=== PATIENT | female | born 1985 | race American Indian/Alaskan Native ===

== ENCOUNTER 2021-04-24 01:38 | Inpatient (IN) | payer SELFPAY ==
[2021-04-24] MEDS ORDERED: SODIUM CHLORIDE 0.9% 1000 ML 1,000 ML IV ONE ×2 (01:48→02:57)
--- NOTE | 2021-04-24 01:52 | Emergency Department Report ---
HPI - General Time Seen by Provider: 04/24/21 01:44 - [facility] HPI: This is a 35-year-old -[place] female presents to the emergency department via EMS from home with a complaint of altered mental status, weakness, dehydration and hyperglycemia. Apparently a family member called EMS as the patient appeared to be going in and out of consciousness. The patient is awake and alert for EMS and myself. She admits to being out of her insulin for the past week. She denies any headache, vision change, chest pain, shortness of breath, abdominal pain, vomiting. She also has a history of hypertension and was found to have an extremely elevated blood pressure with EMS and upon presentation here. The patient does not know which blood pressure medications she takes and also does not appear to be compliant with this. She admits to being in diabetic ketoacidosis in the past. The Accu-Chek in route with EMS just read "high." ED Review of Systems ROS: Stated complaint: HYPERGLYCIMA/HTN Other details as noted in HPI Comment: All other systems reviewed and negative Constitutional: weakness. denies: chills, fever Eyes: denies: eye pain, vision change ENT: denies: ear pain, throat pain Respiratory: denies: cough, shortness of breath Cardiovascular: denies: chest pain, palpitations Endocrine: increased thirst, increased urine Gastrointestinal: nausea. denies: abdominal pain, vomiting Genitourinary: frequency. denies: dysuria, discharge Musculoskeletal: denies: back pain, arthralgia Skin: denies: rash, lesions Neurological: denies: headache, numbness Physical Exam - Physical Exam Physical Exam: GENERAL: The patient is ill-appearing. HENT: Normocephalic. Atraumatic. Patient has moist mucous membranes. EYES: Extraocular motions are intact. NECK: Supple. Trachea is midline. CHEST/LUNGS: Clear to auscultation. There is no respiratory distress noted. HEART/CARDIOVASCULAR: Regular. There is mild tachycardia. There is no murmur. ABDOMEN: Abdomen is soft, nontender. Patient has normal bowel sounds. There is no abdominal distention. SKIN: Skin is warm and dry. NEURO: The patient is awake, alert, and cooperative. The patient has no focal neurologic deficits. Normal speech. MUSCULOSKELETAL: There is no tenderness or deformity. There is no limitation range of motion. ED Medical Decision Making - Lab Data Result diagrams: 04/24/21 01:58 04/24/21 01:58 Lab Results 04/24/21 04/24/21 04/24/21 Range/Units 01:42 01:58 01:58 WBC 13.2 H (4.5-11.0) K/mm3 RBC 5.01 (3.65-5.03) M/mm3 Hgb 16.7 H (10.1-14.3) gm/dl Hct 50.3 H (30.3-42.9) % MCV 101 H (79-97) fl MCH 33 H (28-32) pg MCHC 33 (30-34) % RDW 12.7 L (13.2-15.2) % Plt Count 378 (140-440) K/mm3 Add Manual Diff Complete Total Counted 100 Seg Neutrophils % Target Man Seg Neuts % (Manual) 95.0 H (40.0-70.0) % Lymphocytes % (Manual) 4.0 L (13.4-35.0) % Monocytes % (Manual) 1.0 (0.0-7.3) % Nucleated RBC % Not Reportable Seg Neutrophils # Man 12.5 H (1.8-7.7) K/mm3 Band Neutrophils # 0.0 K/mm3 Lymphocytes # (Manual) 0.5 L (1.2-5.4) K/mm3 Abs React Lymphs (Man) 0.0 K/mm3 Monocytes # (Manual) 0.1 (0.0-0.8) K/mm3 Eosinophils # (Manual) 0.0 (0.0-0.4) K/mm3 Basophils # (Manual) 0.0 (0.0-0.1) K/mm3 Metamyelocytes # 0.0 K/mm3 Myelocytes # 0.0 K/mm3 Promyelocytes # 0.0 K/mm3 Blast Cells # 0.0 K/mm3 WBC Morphology Not Reportable Hypersegmented Neuts Not Reportable Hyposegmented Neuts Not Reportable Hypogranular Neuts Not Reportable Smudge Cells Not Reportable Toxic Granulation Not Reportable Toxic Vacuolation Not Reportable Dohle Bodies Not Reportable Pelger-Huet Anomaly Not Reportable Lucero Rods Not Reportable Platelet Estimate Consistent w auto Clumped Platelets Not Reportable Plt Clumps, EDTA Not Reportable Large Platelets Not Reportable Giant Platelets Not Reportable Platelet Satelliting Not Reportable Plt Morphology Comment Not Reportable RBC Morphology Normal Dimorphic RBCs Not Reportable Polychromasia Not Reportable Hypochromasia Not Reportable Poikilocytosis Not Reportable Anisocytosis Not Reportable Microcytosis Not Reportable Macrocytosis Not Reportable Spherocytes Not Reportable Pappenheimer Bodies Not Reportable Sickle Cells Not Reportable Target Cells Not Reportable Tear Drop Cells Not Reportable Ovalocytes Not Reportable Helmet Cells Not Reportable [place] Bodies Not Reportable [place] Rings Not Reportable [place] Cells Not Reportable Bite Cells Not Reportable Crenated Cell Not Reportable Elliptocytes Not Reportable Acanthocytes (Spur) Not Reportable Rouleaux Not Reportable Hemoglobin C Crystals Not Reportable Schistocytes Not Reportable Malaria parasites Not Reportable [place] Bodies Not Reportable Hem Pathologist Commnt No VBG pH (7.320-7.420) Sodium 137 (137-145) mmol/L Potassium 4.6 (3.6-5.0) mmol/L Chloride 92.1 L (98-107) mmol/L Carbon Dioxide 18 L (22-30) mmol/L Anion Gap 32 mmol/L BUN 25 H (7-17) mg/dL Creatinine 2.0 H (0.6-1.2) mg/dL Estimated GFR 28 ml/min BUN/Creatinine Ratio 13 % Glucose 864 H* (65-100) mg/dL POC Glucose > 600 H (70-105) mg/dL Ketones Quantitative Small (Negative) Osmolality Mosm/kg Calcium 10.4 H (8.4-10.2) mg/dL Total Bilirubin 0.30 (0.1-1.2) mg/dL Direct Bilirubin < 0.2 (0-0.2) mg/dL Indirect Bilirubin 0.1 mg/dL AST 18 (5-40) units/L ALT 11 (7-56) units/L Alkaline Phosphatase 157 H (35-129) units/L Total Protein 7.6 (6.3-8.2) g/dL Albumin 4.2 (3.9-5) g/dL Albumin/Globulin Ratio 1.2 % HCG, Qual (Negative) 04/24/21 04/24/21 04/24/21 Range/Units 01:58 01:58 03:18 WBC (4.5-11.0) K/mm3 RBC (3.65-5.03) M/mm3 Hgb (10.1-14.3) gm/dl Hct (30.3-42.9) % MCV (79-97) fl MCH (28-32) pg MCHC (30-34) % RDW (13.2-15.2) % Plt Count (140-440) K/mm3 Add Manual Diff Total Counted Seg Neutrophils % Seg Neuts % (Manual) (40.0-70.0) % Lymphocytes % (Manual) (13.4-35.0) % Monocytes % (Manual) (0.0-7.3) % Nucleated RBC % Seg Neutrophils # Man (1.8-7.7) K/mm3 Band Neutrophils # K/mm3 Lymphocytes # (Manual) (1.2-5.4) K/mm3 Abs React Lymphs (Man) K/mm3 Monocytes # (Manual) (0.0-0.8) K/mm3 Eosinophils # (Manual) (0.0-0.4) K/mm3 Basophils # (Manual) (0.0-0.1) K/mm3 Metamyelocytes # K/mm3 Myelocytes # K/mm3 Promyelocytes # K/mm3 Blast Cells # K/mm3 WBC Morphology Hypersegmented Neuts Hyposegmented Neuts Hypogranular Neuts Smudge Cells Toxic Granulation Toxic Vacuolation Dohle Bodies Pelger-Huet Anomaly Lucero Rods Platelet Estimate Clumped Platelets Plt Clumps, EDTA Large Platelets Giant Platelets Platelet Satelliting Plt Morphology Comment RBC Morphology Dimorphic RBCs Polychromasia Hypochromasia Poikilocytosis Anisocytosis Microcytosis Macrocytosis Spherocytes Pappenheimer Bodies Sickle Cells Target Cells Tear Drop Cells Ovalocytes Helmet Cells Sykes-[place] Bodies [place] Rings [place] Cells Bite Cells Crenated Cell Elliptocytes Acanthocytes (Spur) Rouleaux Hemoglobin C Crystals Schistocytes Malaria parasites [place] Bodies Hem Pathologist Commnt VBG pH 7.329 (7.320-7.420) Sodium (137-145) mmol/L Potassium (3.6-5.0) mmol/L Chloride (98-107) mmol/L Carbon Dioxide (22-30) mmol/L Anion Gap mmol/L BUN (7-17) mg/dL Creatinine (0.6-1.2) mg/dL Estimated GFR ml/min BUN/Creatinine Ratio % Glucose (65-100) mg/dL POC Glucose (70-105) mg/dL Ketones Quantitative (Negative) Osmolality 343 Mosm/kg Calcium (8.4-10.2) mg/dL Total Bilirubin (0.1-1.2) mg/dL Direct Bilirubin (0-0.2) mg/dL Indirect Bilirubin mg/dL AST (5-40) units/L ALT (7-56) units/L Alkaline Phosphatase (35-129) units/L Total Protein (6.3-8.2) g/dL Albumin (3.9-5) g/dL Albumin/Globulin Ratio % HCG, Qual Negative (Negative) - EKG Data -: EKG Interpreted by Me EKG shows normal: sinus rhythm, axis, intervals, QRS complexes (Beltran H), ST-T waves Rate: normal - EKG Data When compared to previous EKG there are: previous EKG unavailable Interpretation: LVH - Medical Decision Making This patient presents to the emergency department with some generalized weakness and fatigue, increased urination, increased thirst, and hyperglycemia secondary to medication noncompliance with her insulin. She had an Accu-Chek that was critically high with EMS. The patient does appear to be in diabetic ketoacidosis as she has a serum blood sugar of about 860, and anion gap of 32, is starting to have some venous acidosis, and is producing serum ketones. The patient has been placed on an insulin drip and will go to the ICU. She has been accepted for admission by the hospitalist, Dr. Rahman. Critical Care Time: Yes Critical care time in (mins) excluding proc time.: 35 Critical care attestation.: If time is entered above; I have spent that time in minutes in the direct care of this critically ill patient, excluding procedure time. Critical care time was spent on this patient in doing her initial evaluation, multiple reevaluations, ordering and interpretation of labs, IV fluid resuscitation and insulin drip for diabetic ketoacidosis, multiple discussions with the patient. Critical Care Time: 35 minutes ED Disposition Clinical Impression: Hypertensive urgency, malignant Diabetic ketoacidosis Qualifiers: Diabetes mellitus type: type 1 Diabetes mellitus complication detail: without coma Qualified Code(s): E10.10 - Type 1 diabetes mellitus with ketoacidosis without coma Acute renal failure Qualifiers: Acute renal failure type: unspecified Qualified Code(s): N17.9 - Acute kidney failure, unspecified Disposition: 09 ADMITTED INPATIENT Is pt being admited?: Yes Condition: Serious Time of Disposition: 03:17
[2021-04-24 02:19] LABS: Hematocrit 50.3 % (30.3-42.9); Hemoglobin 16.7 gm/dl (10.1-14.3); Mean Corpuscular HGB Conc 33 % (30-34); Mean Corpuscular Volume 101 fl (79-97); Platelet Count 378 K/mm3 (140-440); Red Blood Count 5.01 M/mm3 (3.65-5.03); Red Cell Distribution Width 12.7 % (13.2-15.2)
[2021-04-24] MEDS ORDERED: hydrALAZINE 20 MG/1 ML INJ IV ONE (02:24)
[2021-04-24 02:33] LABS: Alanine Aminotransferase 11 units/L (7-56); Albumin 4.2 g/dL (3.9-5); BUN/Creatinine Ratio 13; Blood Urea Nitrogen 25 mg/dL (7-17); Calcium 10.4 mg/dL (8.4-10.2); Hemolysis Index 9
[2021-04-24 02:47] LABS: Bilirubin,Direct < 0.2 mg/dL (0-0.2)
[2021-04-24 02:54] LABS: Platelet Estimate Consistent w Auto; RBC Morphology Normal; Total Cells Counted 100
[2021-04-24] MEDS ORDERED: INSULIN REGULAR, HUMAN 100 UNITS in SODIUM CHLORIDE 0.9% 99 ML IV SCH (03:00)
[2021-04-24] MEDS ORDERED: ALBUTEROL 2.5 MG/3 ML NEBU IH PRN (03:32)
[2021-04-24] MEDS ORDERED: MORPHINE 2 MG/1 ML INJ IV PRN (03:32)
[2021-04-24] MEDS ORDERED: HYDROmorphone 1 MG/1 ML INJ IV PRN (03:32)
[2021-04-24] MEDS ORDERED: ONDANSETRON 4 MG/2 ML INJ IV PRN (03:32)
--- NOTE | 2021-04-24 03:40 | History and Physical Report ---
History of Present Illness Date of examination: 04/24/21 Date of admission: 04/24/21 Chief complaint: Hyperglycemia Hypertension History of present illness: 35-year female with past medical history of diabetes type 1 and hypertension was brought to the emergency room because of altered mental status, weakness, dehydration and hyperglycemia. Apparently a family member called EMS as the patient appeared to be going in and out of consciousness. The patient is awake and alert for EMS and myself. She admits to being out of her insulin for the past week. She denies any headache, vision change, chest pain, shortness of breath, abdominal pain, vomiting. She also has a history of hypertension and was found to have an extremely elevated blood pressure with EMS and upon presentation here. BP was 240/165. Patient also complained of polydipsia and polyuria. In the emergency room patient is found to have DKA. Patient blood glucose 864. Bicarb 18 anion gap 32 BUN 25 and creatinine 2.0. We are going to put the patient on ICU with insulin drip will consult critical care evaluation Past History Past Medical History: diabetes, hypertension Medications and Allergies Allergies Allergy/AdvReac Type Severity Reaction Status Date / Time No Known Allergies Allergy Verified 04/24/21 02:01 Active Meds: Active Medications Acetaminophen (Acetaminophen 325 Mg Tab) 650 mg PO Q4H PRN PRN Reason: Pain MILD(1-3)/Fever >100.5/TOVAR Albuterol (Albuterol 2.5 Mg/3 Ml Nebu) 2.5 mg IH Q4HRT PRN PRN Reason: Shortness Of Breath Albuterol/Ipratropium (Ipratropium/Albuterol Sulfate 3 Ml Ampul.Neb) 1 ampul IH Q6HRT LAKSHMI Famotidine (Famotidine 20 Mg/2 Ml Inj) 20 mg IV BID LAKSHMI Heparin Sodium (Porcine) (Heparin 5,000 Unit/1 Ml Vial) 5,000 unit SUB-Q Q8HR LAKSHMI Hydromorphone HCl (Hydromorphone 1 Mg/1 Ml Inj) 0.5 mg IV Q3H PRN PRN Reason: Pain , Severe (7-10) Insulin Human Regular 100 (units/ Sodium Chloride) 100 mls @ 1 mls/hr IV TITR LAKSHMI; Protocol Sodium Chloride (Nacl 0.9% 1000 Ml) 1,000 mls @ 999 mls/hr IV BOLUS ONE Stop: 04/24/21 03:57 Insulin Human Regular 100 (units/ Sodium Chloride) 100 mls @ 1 mls/hr IV TITR LAKSHMI; Protocol Sodium Chloride (Nacl 0.9% 1000 Ml) 1,000 mls @ 125 mls/hr IV DIRECT LAKSHMI Morphine Sulfate (Morphine 2 Mg/1 Ml Inj) 2 mg IV Q4H PRN PRN Reason: Pain, Moderate (4-6) Ondansetron HCl (Ondansetron 4 Mg/2 Ml Inj) 4 mg IV Q8H PRN PRN Reason: Nausea And Vomiting Sodium Chloride (Sodium Chloride 0.9% 10 Ml Flush Syringe) 10 ml IV BID LAKSHMI Sodium Chloride (Sodium Chloride 0.9% 10 Ml Flush Syringe) 10 ml IV PRN PRN PRN Reason: LINE FLUSH Review of Systems All systems: negative Constitutional: weakness Gastrointestinal: nausea Endocrine: excessive thirst, polyuria Exam - Constitutional Vitals: Temp Pulse Resp BP Pulse Ox 99 H 12 240/165 98 04/24/21 02:08 04/24/21 02:08 04/24/21 02:08 04/24/21 02:08 General appearance: Present: mild distress, well-nourished - EENT Eyes: Present: PERRL ENT: hearing intact, clear oral mucosa - Neck Neck: Present: supple, normal ROM - Respiratory Respiratory effort: normal Respiratory: bilateral: CTA - Cardiovascular Heart Sounds: Present: S1 & S2. Absent: rub, click - Extremities Extremities: pulses symmetrical, No edema Peripheral Pulses: within normal limits - Abdominal General gastrointestinal: Present: soft, non-tender, non-distended, normal bowel sounds Female genitourinary: Present: normal - Integumentary Integumentary: Present: clear, warm, dry - Musculoskeletal Musculoskeletal: gait normal, strength equal bilaterally - Psychiatric Psychiatric: appropriate mood/affect, intact judgment & insight - Neurologic Neurologic: CNII-XII intact, moves all extremities Results - Labs CBC & Chem 7: 04/24/21 01:58 04/24/21 01:58 Labs: Laboratory Last Values WBC 13.2 K/mm3 (4.5-11.0) H 04/24/21 01:58 RBC 5.01 M/mm3 (3.65-5.03) 04/24/21 01:58 Hgb 16.7 gm/dl (10.1-14.3) H 04/24/21 01:58 Hct 50.3 % (30.3-42.9) H 04/24/21 01:58 MCV 101 fl (79-97) H 04/24/21 01:58 MCH 33 pg (28-32) H 04/24/21 01:58 MCHC 33 % (30-34) 04/24/21 01:58 RDW 12.7 % (13.2-15.2) L 04/24/21 01:58 Plt Count 378 K/mm3 (140-440) 04/24/21 01:58 Add Manual Diff Complete 04/24/21 01:58 Total Counted 100 04/24/21 01:58 Seg Neutrophils % Top Lifter 04/24/21 01:58 Seg Neuts % (Manual) 95.0 % (40.0-70.0) H 04/24/21 01:58 Lymphocytes % (Manual) 4.0 % (13.4-35.0) L 04/24/21 01:58 Monocytes % (Manual) 1.0 % (0.0-7.3) 04/24/21 01:58 Nucleated RBC % Not Reportable 04/24/21 01:58 Seg Neutrophils # Man 12.5 K/mm3 (1.8-7.7) H 04/24/21 01:58 Band Neutrophils # 0.0 K/mm3 04/24/21 01:58 Lymphocytes # (Manual) 0.5 K/mm3 (1.2-5.4) L 04/24/21 01:58 Abs React Lymphs (Man) 0.0 K/mm3 04/24/21 01:58 Monocytes # (Manual) 0.1 K/mm3 (0.0-0.8) 04/24/21 01:58 Eosinophils # (Manual) 0.0 K/mm3 (0.0-0.4) 04/24/21 01:58 Basophils # (Manual) 0.0 K/mm3 (0.0-0.1) 04/24/21 01:58 Metamyelocytes # 0.0 K/mm3 04/24/21 01:58 Myelocytes # 0.0 K/mm3 04/24/21 01:58 Promyelocytes # 0.0 K/mm3 04/24/21 01:58 Blast Cells # 0.0 K/mm3 04/24/21 01:58 WBC Morphology Not Reportable 04/24/21 01:58 Hypersegmented Neuts Not Reportable 04/24/21 01:58 Hyposegmented Neuts Not Reportable 04/24/21 01:58 Hypogranular Neuts Not Reportable 04/24/21 01:58 Smudge Cells Not Reportable 04/24/21 01:58 Toxic Granulation Not Reportable 04/24/21 01:58 Toxic Vacuolation Not Reportable 04/24/21 01:58 Dohle Bodies Not Reportable 04/24/21 01:58 Pelger-Huet Anomaly Not Reportable 04/24/21 01:58 Lucero Rods Not Reportable 04/24/21 01:58 Platelet Estimate Consistent w auto 04/24/21 01:58 Clumped Platelets Not Reportable 04/24/21 01:58 Plt Clumps, EDTA Not Reportable 04/24/21 01:58 Large Platelets Not Reportable 04/24/21 01:58 Giant Platelets Not Reportable 04/24/21 01:58 Platelet Satelliting Not Reportable 04/24/21 01:58 Plt Morphology Comment Not Reportable 04/24/21 01:58 RBC Morphology Normal 04/24/21 01:58 Dimorphic RBCs Not Reportable 04/24/21 01:58 Polychromasia Not Reportable 04/24/21 01:58 Hypochromasia Not Reportable 04/24/21 01:58 Poikilocytosis Not Reportable 04/24/21 01:58 Anisocytosis Not Reportable 04/24/21 01:58 Microcytosis Not Reportable 04/24/21 01:58 Macrocytosis Not Reportable 04/24/21 01:58 Spherocytes Not Reportable 04/24/21 01:58 Pappenheimer Bodies Not Reportable 04/24/21 01:58 Sickle Cells Not Reportable 04/24/21 01:58 Target Cells Not Reportable 04/24/21 01:58 Tear Drop Cells Not Reportable 04/24/21 01:58 Ovalocytes Not Reportable 04/24/21 01:58 Helmet Cells Not Reportable 04/24/21 01:58 [place] Bodies Not Reportable 04/24/21 01:58 [place] Rings Not Reportable 04/24/21 01:58 [place] Cells Not Reportable 04/24/21 01:58 Bite Cells Not Reportable 04/24/21 01:58 Crenated Cell Not Reportable 04/24/21 01:58 Elliptocytes Not Reportable 04/24/21 01:58 Acanthocytes (Spur) Not Reportable 04/24/21 01:58 Rouleaux Not Reportable 04/24/21 01:58 Hemoglobin C Crystals Not Reportable 04/24/21 01:58 Schistocytes Not Reportable 04/24/21 01:58 Malaria parasites Not Reportable 04/24/21 01:58 [place] Bodies Not Reportable 04/24/21 01:58 Hem Pathologist Commnt No 04/24/21 01:58 VBG pH 7.329 (7.320-7.420) 04/24/21 01:58 Sodium 137 mmol/L (137-145) 04/24/21 01:58 Potassium 4.6 mmol/L (3.6-5.0) 04/24/21 01:58 Chloride 92.1 mmol/L (98-107) L 04/24/21 01:58 Carbon Dioxide 18 mmol/L (22-30) L 04/24/21 01:58 Anion Gap 32 mmol/L 04/24/21 01:58 BUN 25 mg/dL (7-17) H 04/24/21 01:58 Creatinine 2.0 mg/dL (0.6-1.2) H 04/24/21 01:58 Estimated GFR 28 ml/min 04/24/21 01:58 BUN/Creatinine Ratio 13 % 04/24/21 01:58 Glucose 864 mg/dL (65-100) H* 04/24/21 01:58 POC Glucose > 600 mg/dL (70-105) H 04/24/21 01:42 Ketones Quantitative Small (Negative) 04/24/21 01:58 Calcium 10.4 mg/dL (8.4-10.2) H 04/24/21 01:58 Total Bilirubin 0.30 mg/dL (0.1-1.2) 04/24/21 01:58 Direct Bilirubin < 0.2 mg/dL (0-0.2) 04/24/21 01:58 Indirect Bilirubin 0.1 mg/dL 04/24/21 01:58 AST 18 units/L (5-40) 04/24/21 01:58 ALT 11 units/L (7-56) 04/24/21 01:58 Alkaline Phosphatase 157 units/L (35-129) H 04/24/21 01:58 Total Protein 7.6 g/dL (6.3-8.2) 04/24/21 01:58 Albumin 4.2 g/dL (3.9-5) 04/24/21 01:58 Albumin/Globulin Ratio 1.2 % 04/24/21 01:58 HCG, Qual Negative (Negative) 04/24/21 01:58 Assessment and Plan VTE prophylaxis?: Chemical Plan of care discussed with patient/family: Yes - Patient Problems (1) Diabetic ketoacidosis Status: Acute Plan to address problem: Admit the patient to the ICU. NPO. Normal saline at the rate of 125 cc/h. Insulin drip as per protocol. We do the serial BMP. Will consult critical care evaluation and diabetic education. Recheck BMP in the morning (2) Acute renal failure Status: Acute Plan to address problem: Avoid nephrotoxic drug. Normal saline at the rate of 125 cc/h. Renally dose medication. Recheck BMP in the morning. Consult nephrology . (3) Hypertensive urgency, malignant Status: Acute Plan to address problem: Hydralazine 10 mg IV every 6 hours as needed. We continue the home medication. We will monitor the blood pressure closely (4) DVT prophylaxis Status: Acute Plan to address problem: SCD for DVT prophylaxis. Pepcid 20 mg p.o. twice daily for GI prophylaxis. Patient is a full code
[2021-04-24] MEDS ORDERED: SODIUM CHLORIDE 0.9% 1000 ML 1,000 ML IV SCH (03:45)
[2021-04-24] MEDS: INSULIN REGULAR, HUMAN 100 UNITS in SODIUM CHLORIDE 0.9% 99 ML IV SCH ×2 (04:07→14:40)
[2021-04-24 04:37] LABS: Calcium 10.2 mg/dL (8.4-10.2)
[2021-04-24 05:56] LABS: Calcium 9.7 mg/dL (8.4-10.2)
[2021-04-24] MEDS ORDERED: HEPARIN 5,000 UNIT/1 ML VIAL SUB-Q SCH (06:00)
[2021-04-24] MEDS ORDERED: IPRATROPIUM/ALBUTEROL SULFATE 3 ML AMPUL.NEB IH SCH (08:00)
--- NOTE | 2021-04-24 09:34 | Electrocardiograph Report ---
[facility] Test Date: 2021-04-24 Test Time: 02:12:55 Pat Name: KAM JOHNSTON Department: Room: [place] [address] Gender: F Real Estate Transaction Coordinator: CANDIDA : 1985 Requested By: GILBERT VIZCARRA Order Number: [id number] Reading MD: Ilya Fenton Measurements Intervals [place] Rate: 86 P: 79 TX: 140 QRS: 59 QRSD: 87 T: -60 QT: 401 QTc: 479 Interpretive Statements Sinus rhythm LAE, consider biatrial enlargement LVH with secondary repolarization abnormality No previous ECG available for comparison Electronically Signed On 04-24-2021 9:33:57 EDT by Ilya Fenton
[2021-04-24] MEDS ORDERED: FAMOTIDINE 20 MG/2 ML INJ IV SCH (10:00)
--- NOTE | 2021-04-24 11:24 | Consultation ---
History of Present Illness - History of Present Illness Thank you for the consultation Patient was evaluated today My assessment and plan are as follows Renal failure in a patient who has history of diabetes hypertension currently being admitted here with severe hyperglycemia uncontrolled hypertension blood pressure was 240/165 blood sugar more than 800, patient is at risk for chronic kidney disease as well as progression over time. At this time patient appears to be profoundly volume depleted and hence will be resuscitated with close monitoring of renal function there is no indication for renal placement therapy, acidosis needs to be controlled, gap needs to be closed IV hydration and insulin drip close monitoring of renal function #Accelerated hypertension needs better control? Compliance rule out other causes rule out secondary hypertension #Will order for renal ultrasonogram, urine studies, will need follow-up in the office upon discharge, #Renal prognosis remains guarded at this time Author: Ciaran German M.D. [facility], [address] [place] [address] Tel; [phone] Source of information: From patient History of present illness 35-year-old -[place] female has been admitted here in the hospital with altered mental status generalized weakness dehydration as well as severe hyperglycemia he was found to have altered mental status, he has been noted that he has been out of insulin for the past 1 week, upon arrival in the ER upon arrival his BUN was 25 creatinine was 2.0 blood sugar was 864 bicarbonate was 18 currently is being treated for diabetic ketoacidosis, hemoglobin was 16.7 white cell count 13.2 Phosphorus was 7.0 magnesium 2.4 LFTs normal, bicarbonate was 16 Past medical history: Diabetes mellitus Hypertension Current allergies: Reviewed from the current chart Social history: Reviewed from the current chart Family history: Reviewed from the current chart Review of system: Positive for poor appetite has been out of medications, did not had any insulin for past 1 week very tired week fatigue All other review of systems negative Physical examination Vitals: Reviewed General: No acute distress HEENT: Oral mucosa moist no pallor or icterus Neck: Supple without any JVD thyromegaly or nodular mass Chest: Clear to auscultation Heart: Regular rate and rhythm S1-S2 heard no S3-S4 Abdomen: Soft nontender, bowel sounds present no renal bruit no suprapubic masses no CVA tenderness noted Extremity: Minimal edema dry skin no peripheral cyanosis Endocrine: Thyroid not enlarged Psychiatric: No agitation and aggression noted Musculoskeletal: No joint effusion noted Labs and x-rays: Reviewed from this admission Past History Past Medical History: diabetes, hypertension Medications and Allergies Allergies Allergy/AdvReac Type Severity Reaction Status Date / Time No Known Allergies Allergy Verified 04/24/21 02:01 Active Meds: Active Medications Acetaminophen (Acetaminophen 325 Mg Tab) 650 mg PO Q4H PRN PRN Reason: Pain MILD(1-3)/Fever >100.5/TOVAR Albuterol (Albuterol 2.5 Mg/3 Ml Nebu) 2.5 mg IH Q4HRT PRN PRN Reason: Shortness Of Breath Albuterol/Ipratropium (Ipratropium/Albuterol Sulfate 3 Ml Ampul.Neb) 1 ampul IH Q6HRT LAKSHMI Last Admin: 04/24/21 09:22 Dose: 1 ampul Documented by: Famotidine (Famotidine 20 Mg/2 Ml Inj) 20 mg IV DAILY LAKSHMI Hydralazine HCl (Hydralazine 20 Mg/1 Ml Inj) 10 mg IV Q6H PRN PRN Reason: Blood Pressure Hydromorphone HCl (Hydromorphone 1 Mg/1 Ml Inj) 0.5 mg IV Q3H PRN PRN Reason: Pain , Severe (7-10) Insulin Human Regular 100 (units/ Sodium Chloride) 100 mls @ 1 mls/hr IV TITR LAKSHMI; Protocol Last Titration: 04/24/21 09:53 Dose: 8 units/hr, 8 mls/hr Documented by: Sodium Chloride (Nacl 0.9% 1000 Ml) 1,000 mls @ 125 mls/hr IV DIRECT LAKSHMI Morphine Sulfate (Morphine 2 Mg/1 Ml Inj) 2 mg IV Q4H PRN PRN Reason: Pain, Moderate (4-6) Ondansetron HCl (Ondansetron 4 Mg/2 Ml Inj) 4 mg IV Q8H PRN PRN Reason: Nausea And Vomiting Sodium Chloride (Sodium Chloride 0.9% 10 Ml Flush Syringe) 10 ml IV BID LAKSHMI Sodium Chloride (Sodium Chloride 0.9% 10 Ml Flush Syringe) 10 ml IV PRN PRN PRN Reason: LINE FLUSH Exam - Vital Signs Vital signs: Vital Signs Pulse Resp BP Pulse Ox 99 H 12 240/165 98 04/24/21 02:08 04/24/21 02:08 04/24/21 02:08 04/24/21 02:08 Results - Lab Results 04/24/21 01:58 04/24/21 05:18 Most recent lab results Calcium 9.7 mg/dL (8.4-10.2) 04/24/21 05:18 Phosphorus 7.00 mg/dL (2.5-4.5) H 04/24/21 03:18 Magnesium 2.40 mg/dL (1.7-2.3) H 04/24/21 03:18
[2021-04-24] MEDS: FAMOTIDINE 20 MG/2 ML INJ IV SCH (11:35)
--- NOTE | 2021-04-24 12:09 | Progress Note ---
Assessment and Plan Assessment and plan: HPI: 35-year female with past medical history of diabetes type 1 and hypertension was brought to the emergency room because of altered mental status, weakness, dehydration and hyperglycemia. Apparently a family member called EMS as the patient appeared to be going in and out of consciousness. The patient is awake and alert for EMS and myself. She admits to being out of her insulin for the past week. She denies any headache, vision change, chest pain, shortness of breath, abdominal pain, vomiting. She also has a history of hypertension and was found to have an extremely elevated blood pressure with EMS and upon presentation here. BP was 240/165. Patient also complained of polydipsia and polyuria. In the emergency room patient is found to have DKA. Patient blood glucose 864. Bicarb 18 anion gap 32 BUN 25 and creatinine 2.0. We are going to put the patient on ICU with insulin drip will consult critical care evaluation Hospital course to date: 04/24: Gap remains open. Blood sugars in 300s. Will monitor on serial BMP. Plan to transition to weight-based Lantus and scheduled mealtime insulin once gap normalizes. Patient also noted to have acute renal failure and is likely high risk for progression of CKD given uncontrolled diabetes and hypertension. Nephrology recommendations are noted. Antihypertensive therapy started. Will monitor for improvement. Anticipate discharge in 48 to 72 hours. Will need diabetic education while she is here. Dietitian consulted Assessment and plan: (1) Diabetic ketoacidosis Status: Acute Plan to address problem: History of noncompliance, patient has been out of insulin for approximately 1 week now Admit the patient to the ICU. NPO. Normal saline at the rate of 125 cc/h. Insulin drip as per protocol. Transition to weight-based Lantus and scheduled mealtime insulin once gap normalizes We do the serial BMP. Will consult critical care evaluation and diabetic education. Recheck BMP in the morning (2) Acute renal failure Status: Acute Plan to address problem: Possibly from prerenal azotemia versus progression of diabetic nephropathy, poorly controlled blood sugar and blood pressure. avoid nephrotoxic drug. Normal saline at the rate of 125 cc/h. Renally dose medication. Recheck BMP in the morning. Nephrology is consulted (3) Hypertensive emergency Status: Acute Plan to address problem: Labetalol 10 mg IV every 6 hours as needed Start Norvasc 5 mg p.o. daily once patient able to Start hydralazine 100 mg p.o. 3 times daily once able to We continue the home medication. We will monitor the blood pressure closely (4) DVT prophylaxis Status: Acute Plan to address problem: SCD for DVT prophylaxis. Pepcid 20 mg p.o. twice daily for GI prophylaxis. Patient is a full code (4) Advance Care Planning Disease education conducted, care plan discussed, diagnoses discussed, prognosis discussed, patient is full code, patient acknowledges understanding and agree with care plan, +30 minutes. The high probability of a clinically significant, sudden or life threatening deterioration of the [cardio, endocrine, renal] system(s) required my full and direct attention, intervention and personal management. The aggregate critical care time was [60] minutes. This time is in addition to time spent performing reported procedures but includes the following: [x] Data Review and interpretation [x] Patient assessment and monitoring of vital signs [x] Documentation [x] Medication orders and management History Interval history: No acute complaints. Patient states that she does not have an appetite and stil l feels very tired and cold. She states that she has been out of her insulin for approximately 1 week now. I discussed the care plan for today and administer diabetic education as to why patient has been been admitted to the hospital and what she could do to prevent future hospitalizations. I stressed the importance of maintaining a carbohydrate controlled diet and maintaining compliance with her insulin regimen. Hospitalist Physical - Physical exam Narrative exam: Physical Exam: VITAL SIGNS: Reviewed. GENERAL: The patient appears normally developed, Vital signs as documented. HEAD: No signs of head trauma. EYES: Pupils are equal. Extraocular motions intact. EARS: Hearing grossly intact. MOUTH: Oropharynx is normal. NECK: No adenopathy, no JVD. CHEST: Chest with clear breath sounds bilaterally. No wheezes, rales, or rhonchi. CARDIAC: Regular rate and rhythm. S1 and S2, without murmurs, gallops, or rubs. VASCULAR: No Edema. Peripheral pulses normal and equal in all extremities. ABDOMEN: Soft, non tender and non distended. No rebound or guarding, and no masses palpated. Bowel Sounds normal. MUSCULOSKELETAL: Good range of motion of all major joints. Extremities without clubbing, cyanosis or edema. NEUROLOGIC EXAM: Alert and oriented x4. No focal sensory or strength deficits. PSYCHIATRIC: Mood normal. SKIN: detail exam as documented in skin assessment - Constitutional Vitals: Temp Pulse Resp BP Pulse Ox 97.3 F L 100 H 10 L 188/120 99 04/24/21 07:35 04/24/21 10:01 04/24/21 10:31 04/24/21 10:31 04/24/21 10:31 General appearance: Present: mild distress, well-nourished Results - Labs CBC & Chem 7: 04/24/21 01:58 04/24/21 11:03 Labs: Laboratory Last Values WBC 13.2 K/mm3 (4.5-11.0) H 04/24/21 01:58 RBC 5.01 M/mm3 (3.65-5.03) 04/24/21 01:58 Hgb 16.7 gm/dl (10.1-14.3) H 04/24/21 01:58 Hct 50.3 % (30.3-42.9) H 04/24/21 01:58 MCV 101 fl (79-97) H 04/24/21 01:58 MCH 33 pg (28-32) H 04/24/21 01:58 MCHC 33 % (30-34) 04/24/21 01:58 RDW 12.7 % (13.2-15.2) L 04/24/21 01:58 Plt Count 378 K/mm3 (140-440) 04/24/21 01:58 Add Manual Diff Complete 04/24/21 01:58 Total Counted 100 04/24/21 01:58 Seg Neutrophils % Parts Specialist 04/24/21 01:58 Seg Neuts % (Manual) 95.0 % (40.0-70.0) H 04/24/21 01:58 Lymphocytes % (Manual) 4.0 % (13.4-35.0) L 04/24/21 01:58 Monocytes % (Manual) 1.0 % (0.0-7.3) 04/24/21 01:58 Nucleated RBC % Not Reportable 04/24/21 01:58 Seg Neutrophils # Man 12.5 K/mm3 (1.8-7.7) H 04/24/21 01:58 Band Neutrophils # 0.0 K/mm3 04/24/21 01:58 Lymphocytes # (Manual) 0.5 K/mm3 (1.2-5.4) L 04/24/21 01:58 Abs React Lymphs (Man) 0.0 K/mm3 04/24/21 01:58 Monocytes # (Manual) 0.1 K/mm3 (0.0-0.8) 04/24/21 01:58 Eosinophils # (Manual) 0.0 K/mm3 (0.0-0.4) 04/24/21 01:58 Basophils # (Manual) 0.0 K/mm3 (0.0-0.1) 04/24/21 01:58 Metamyelocytes # 0.0 K/mm3 04/24/21 01:58 Myelocytes # 0.0 K/mm3 04/24/21 01:58 Promyelocytes # 0.0 K/mm3 04/24/21 01:58 Blast Cells # 0.0 K/mm3 04/24/21 01:58 WBC Morphology Not Reportable 04/24/21 01:58 Hypersegmented Neuts Not Reportable 04/24/21 01:58 Hyposegmented Neuts Not Reportable 04/24/21 01:58 Hypogranular Neuts Not Reportable 04/24/21 01:58 Smudge Cells Not Reportable 04/24/21 01:58 Toxic Granulation Not Reportable 04/24/21 01:58 Toxic Vacuolation Not Reportable 04/24/21 01:58 Dohle Bodies Not Reportable 04/24/21 01:58 Pelger-Huet Anomaly Not Reportable 04/24/21 01:58 Lucero Rods Not Reportable 04/24/21 01:58 Platelet Estimate Consistent w auto 04/24/21 01:58 Clumped Platelets Not Reportable 04/24/21 01:58 Plt Clumps, EDTA Not Reportable 04/24/21 01:58 Large Platelets Not Reportable 04/24/21 01:58 Giant Platelets Not Reportable 04/24/21 01:58 Platelet Satelliting Not Reportable 04/24/21 01:58 Plt Morphology Comment Not Reportable 04/24/21 01:58 RBC Morphology Normal 04/24/21 01:58 Dimorphic RBCs Not Reportable 04/24/21 01:58 Polychromasia Not Reportable 04/24/21 01:58 Hypochromasia Not Reportable 04/24/21 01:58 Poikilocytosis Not Reportable 04/24/21 01:58 Anisocytosis Not Reportable 04/24/21 01:58 Microcytosis Not Reportable 04/24/21 01:58 Macrocytosis Not Reportable 04/24/21 01:58 Spherocytes Not Reportable 04/24/21 01:58 Pappenheimer Bodies Not Reportable 04/24/21 01:58 Sickle Cells Not Reportable 04/24/21 01:58 Target Cells Not Reportable 04/24/21 01:58 Tear Drop Cells Not Reportable 04/24/21 01:58 Ovalocytes Not Reportable 04/24/21 01:58 Helmet Cells Not Reportable 04/24/21 01:58 Sykes-Paxson Bodies Not Reportable 04/24/21 01:58 Abbott Rings Not Reportable 04/24/21 01:58 Aditi Cells Not Reportable 04/24/21 01:58 Bite Cells Not Reportable 04/24/21 01:58 Crenated Cell Not Reportable 04/24/21 01:58 Elliptocytes Not Reportable 04/24/21 01:58 Acanthocytes (Spur) Not Reportable 04/24/21 01:58 Rouleaux Not Reportable 04/24/21 01:58 Hemoglobin C Crystals Not Reportable 04/24/21 01:58 Schistocytes Not Reportable 04/24/21 01:58 Malaria parasites Not Reportable 04/24/21 01:58 Dakotah Bodies Not Reportable 04/24/21 01:58 Hem Pathologist Commnt No 04/24/21 01:58 VBG pH 7.329 (7.320-7.420) 04/24/21 01:58 Sodium 146 mmol/L (137-145) H D 04/24/21 11:03 Potassium 3.4 mmol/L (3.6-5.0) L 04/24/21 11:03 Chloride 107.5 mmol/L (98-107) H 04/24/21 11:03 Carbon Dioxide 19 mmol/L (22-30) L 04/24/21 11:03 Anion Gap 23 mmol/L 04/24/21 11:03 BUN 30 mg/dL (7-17) H 04/24/21 11:03 Creatinine 2.1 mg/dL (0.6-1.2) H 04/24/21 11:03 Estimated GFR 32 ml/min 04/24/21 11:03 BUN/Creatinine Ratio 14 % 04/24/21 11:03 Glucose 334 mg/dL (65-100) H 04/24/21 11:03 POC Glucose 278 mg/dL (70-105) H 04/24/21 11:31 Ketones Quantitative Small (Negative) 04/24/21 01:58 Osmolality 343 Mosm/kg 04/24/21 03:18 Calcium 10.0 mg/dL (8.4-10.2) 04/24/21 11:03 Phosphorus 7.00 mg/dL (2.5-4.5) H 04/24/21 03:18 Magnesium 2.40 mg/dL (1.7-2.3) H 04/24/21 03:18 Total Bilirubin 0.30 mg/dL (0.1-1.2) 04/24/21 01:58 Direct Bilirubin < 0.2 mg/dL (0-0.2) 04/24/21 01:58 Indirect Bilirubin 0.1 mg/dL 04/24/21 01:58 AST 18 units/L (5-40) 04/24/21 01:58 ALT 11 units/L (7-56) 04/24/21 01:58 Alkaline Phosphatase 157 units/L (35-129) H 04/24/21 01:58 Total Protein 7.6 g/dL (6.3-8.2) 04/24/21 01:58 Albumin 4.2 g/dL (3.9-5) 04/24/21 01:58 Albumin/Globulin Ratio 1.2 % 04/24/21 01:58 HCG, Qual Negative (Negative) 04/24/21 01:58 Active Medications - Current Medications Current Medications: Generic Name Dose Route Start Last Admin Trade Name Freq PRN Reason Stop Dose Admin Acetaminophen 650 mg 04/24/21 03:32 Acetaminophen 325 Mg Tab PO Q4H PRN Pain MILD(1-3)/Fever >100.5/TOVAR Albuterol 2.5 mg 04/24/21 03:32 Albuterol 2.5 Mg/3 Ml Nebu IH Q4HRT PRN Shortness Of Breath Albuterol/Ipratropium 1 ampul 04/24/21 08:00 04/24/21 09:22 Ipratropium/Albuterol Sulfate 3 Ml Ampul.Neb IH 1 ampul Q6HRT LAKSHMI Administration Famotidine 20 mg 04/24/21 10:00 04/24/21 11:35 Famotidine 20 Mg/2 Ml Inj IV 20 mg DAILY LAKSHMI Administration Hydralazine HCl 10 mg 04/24/21 03:45 Hydralazine 20 Mg/1 Ml Inj IV Q6H PRN Blood Pressure Hydromorphone HCl 0.5 mg 04/24/21 03:32 Hydromorphone 1 Mg/1 Ml Inj IV Q3H PRN Pain , Severe (7-10) Insulin Human Regular 100 100 mls @ 1 mls/hr 04/24/21 04:00 04/24/21 11:32 units/ Sodium Chloride IV 7 units/hr TITR LAKSHMI 7 mls/hr Titration Protocol 1 UNITS/HR Sodium Chloride 1,000 mls @ 125 mls/hr 04/24/21 03:45 Nacl 0.9% 1000 Ml IV DIRECT LAKSHMI Labetalol HCl 10 mg 04/24/21 12:07 Labetalol 20 Mg/4 Ml Inj IV Q4HR PRN SBP > 160 Morphine Sulfate 2 mg 04/24/21 03:32 Morphine 2 Mg/1 Ml Inj IV Q4H PRN Pain, Moderate (4-6) Ondansetron HCl 4 mg 04/24/21 03:32 Ondansetron 4 Mg/2 Ml Inj IV Q8H PRN Nausea And Vomiting Sodium Chloride 10 ml 04/24/21 10:00 04/24/21 11:30 Sodium Chloride 0.9% 10 Ml Flush Syringe IV 10 ml BID LAKSHMI Administration Sodium Chloride 10 ml 04/24/21 03:32 Sodium Chloride 0.9% 10 Ml Flush Syringe IV PRN PRN LINE FLUSH Trazodone HCl 50 mg 04/24/21 22:00 Trazodone 50 Mg Tab PO QHS LAKSHMI
--- NOTE | 2021-04-24 12:32 | Consultation ---
History of Present Illness - Reason for Consult Consult date: 04/24/21 DKA - History of Present Illness 35 y/o female admitted with DKA Past History Past Medical History: diabetes, hypertension Medications and Allergies Allergies Allergy/AdvReac Type Severity Reaction Status Date / Time No Known Allergies Allergy Verified 04/24/21 02:01 Active Meds: Active Medications Acetaminophen (Acetaminophen 325 Mg Tab) 650 mg PO Q4H PRN PRN Reason: Pain MILD(1-3)/Fever >100.5/TOVAR Albuterol (Albuterol 2.5 Mg/3 Ml Nebu) 2.5 mg IH Q4HRT PRN PRN Reason: Shortness Of Breath Albuterol/Ipratropium (Ipratropium/Albuterol Sulfate 3 Ml Ampul.Neb) 1 ampul IH Q6HRT [facility] Last Admin: 04/24/21 09:22 Dose: 1 ampul Documented by: Famotidine (Famotidine 20 Mg/2 Ml Inj) 20 mg IV DAILY [facility] Last Admin: 04/24/21 11:35 Dose: 20 mg Documented by: Hydralazine HCl (Hydralazine 20 Mg/1 Ml Inj) 10 mg IV Q6H PRN PRN Reason: Blood Pressure Hydromorphone HCl (Hydromorphone 1 Mg/1 Ml Inj) 0.5 mg IV Q3H PRN PRN Reason: Pain , Severe (7-10) Insulin Human Regular 100 (units/ Sodium Chloride) 100 mls @ 1 mls/hr IV TITR LAKSHMI; Protocol Last Titration: 04/24/21 11:32 Dose: 7 units/hr, 7 mls/hr Documented by: Sodium Chloride (Nacl 0.9% 1000 Ml) 1,000 mls @ 125 mls/hr IV DIRECT LAKSHMI Labetalol HCl (Labetalol 20 Mg/4 Ml Inj) 10 mg IV Q4HR PRN PRN Reason: SBP > 160 Morphine Sulfate (Morphine 2 Mg/1 Ml Inj) 2 mg IV Q4H PRN PRN Reason: Pain, Moderate (4-6) Ondansetron HCl (Ondansetron 4 Mg/2 Ml Inj) 4 mg IV Q8H PRN PRN Reason: Nausea And Vomiting Sodium Chloride (Sodium Chloride 0.9% 10 Ml Flush Syringe) 10 ml IV BID [facility] Last Admin: 04/24/21 11:30 Dose: 10 ml Documented by: Sodium Chloride (Sodium Chloride 0.9% 10 Ml Flush Syringe) 10 ml IV PRN PRN PRN Reason: LINE FLUSH Trazodone HCl (Trazodone 50 Mg Tab) 50 mg PO QHS [facility] Review of Systems All systems: negative Exam - Constitutional Vitals: Temp Pulse Resp BP Pulse Ox 97.3 F L 100 H 10 L 188/120 99 04/24/21 07:35 04/24/21 10:01 04/24/21 10:31 04/24/21 10:31 04/24/21 10:31 Results - Labs CBC & Chem 7: 04/24/21 01:58 04/24/21 11:03 Labs: Abnormal lab results 04/24/21 04/24/21 04/24/21 Range/Units 01:42 01:58 01:58 WBC 13.2 H (4.5-11.0) K/mm3 Hgb 16.7 H (10.1-14.3) gm/dl Hct 50.3 H (30.3-42.9) % MCV 101 H (79-97) fl MCH 33 H (28-32) pg RDW 12.7 L (13.2-15.2) % Seg Neuts % (Manual) 95.0 H (40.0-70.0) % Lymphocytes % (Manual) 4.0 L (13.4-35.0) % Seg Neutrophils # Man 12.5 H (1.8-7.7) K/mm3 Lymphocytes # (Manual) 0.5 L (1.2-5.4) K/mm3 Sodium (137-145) mmol/L Potassium (3.6-5.0) mmol/L Chloride 92.1 L (98-107) mmol/L Carbon Dioxide 18 L (22-30) mmol/L BUN 25 H (7-17) mg/dL Creatinine 2.0 H (0.6-1.2) mg/dL Glucose 864 H* (65-100) mg/dL POC Glucose > 600 H (70-105) mg/dL Calcium 10.4 H (8.4-10.2) mg/dL Phosphorus (2.5-4.5) mg/dL Magnesium (1.7-2.3) mg/dL Alkaline Phosphatase 157 H (35-129) units/L 04/24/21 04/24/21 04/24/21 Range/Units 03:18 05:18 07:28 WBC (4.5-11.0) K/mm3 Hgb (10.1-14.3) gm/dl Hct (30.3-42.9) % MCV (79-97) fl MCH (28-32) pg RDW (13.2-15.2) % Seg Neuts % (Manual) (40.0-70.0) % Lymphocytes % (Manual) (13.4-35.0) % Seg Neutrophils # Man (1.8-7.7) K/mm3 Lymphocytes # (Manual) (1.2-5.4) K/mm3 Sodium (137-145) mmol/L Potassium (3.6-5.0) mmol/L Chloride 96.2 L 96.2 L (98-107) mmol/L Carbon Dioxide 15 L 16 L (22-30) mmol/L BUN 27 H 29 H (7-17) mg/dL Creatinine 2.1 H 2.0 H (0.6-1.2) mg/dL Glucose 871 H* 858 H* (65-100) mg/dL POC Glucose 550 H (70-105) mg/dL Calcium (8.4-10.2) mg/dL Phosphorus 7.00 H (2.5-4.5) mg/dL Magnesium 2.40 H (1.7-2.3) mg/dL Alkaline Phosphatase (35-129) units/L 04/24/21 04/24/21 04/24/21 Range/Units 08:37 09:52 11:03 WBC (4.5-11.0) K/mm3 Hgb (10.1-14.3) gm/dl Hct (30.3-42.9) % MCV (79-97) fl MCH (28-32) pg RDW (13.2-15.2) % Seg Neuts % (Manual) (40.0-70.0) % Lymphocytes % (Manual) (13.4-35.0) % Seg Neutrophils # Man (1.8-7.7) K/mm3 Lymphocytes # (Manual) (1.2-5.4) K/mm3 Sodium 146 H D (137-145) mmol/L Potassium 3.4 L (3.6-5.0) mmol/L Chloride 107.5 H (98-107) mmol/L Carbon Dioxide 19 L (22-30) mmol/L BUN 30 H (7-17) mg/dL Creatinine 2.1 H (0.6-1.2) mg/dL Glucose 334 H (65-100) mg/dL POC Glucose 487 H 322 H (70-105) mg/dL Calcium (8.4-10.2) mg/dL Phosphorus (2.5-4.5) mg/dL Magnesium (1.7-2.3) mg/dL Alkaline Phosphatase (35-129) units/L 04/24/21 Range/Units 11:31 WBC (4.5-11.0) K/mm3 Hgb (10.1-14.3) gm/dl Hct (30.3-42.9) % MCV (79-97) fl MCH (28-32) pg RDW (13.2-15.2) % Seg Neuts % (Manual) (40.0-70.0) % Lymphocytes % (Manual) (13.4-35.0) % Seg Neutrophils # Man (1.8-7.7) K/mm3 Lymphocytes # (Manual) (1.2-5.4) K/mm3 Sodium (137-145) mmol/L Potassium (3.6-5.0) mmol/L Chloride (98-107) mmol/L Carbon Dioxide (22-30) mmol/L BUN (7-17) mg/dL Creatinine (0.6-1.2) mg/dL Glucose (65-100) mg/dL POC Glucose 278 H (70-105) mg/dL Calcium (8.4-10.2) mg/dL Phosphorus (2.5-4.5) mg/dL Magnesium (1.7-2.3) mg/dL Alkaline Phosphatase (35-129) units/L Assessment and Plan 35 y/o female admitted with DKA and acute renal failure. 1. Agree with current assessment and plan of care by IMS team. Continue ICU status until gap closes and patient can be transitioned off insulin drip. Q1 hour FSBS CCT 31 minutes.
[2021-04-24] MEDS: hydrALAZINE 20 MG/1 ML INJ IV PRN ×2 (13:13→22:47)
[2021-04-24 14:30] LABS: Calcium 9.9 mg/dL (8.4-10.2)
[2021-04-24 19:40] LABS: Calcium 9.4 mg/dL (8.4-10.2)
[2021-04-24] MEDS ORDERED: D5W/0.45% NACL/KCL 20 MEQ 20 MEQ/1,000 ML BAG IV SCH (20:00)
[2021-04-24] MEDS: traZODone 50 MG TAB PO SCH (22:00)
[2021-04-25 05:19] LABS: Hemoglobin 15.8 gm/dl (10.1-14.3); Mean Corpuscular HGB Conc 34 % (30-34); Mean Corpuscular Volume 98 fl (79-97); Platelet Count 318 K/mm3 (140-440); Red Blood Count 4.71 M/mm3 (3.65-5.03); Red Cell Distribution Width 12.9 % (13.2-15.2)
[2021-04-25 05:21] LABS: Albumin 3.1 g/dL (3.9-5); Calcium 9.3 mg/dL (8.4-10.2)
[2021-04-25 07:42] LABS: Total Cells Counted 100
[2021-04-25 07:43] LABS: Band Neutrophils # (Manual) 2.1 K/mm3
[2021-04-25 07:44] LABS: RBC Morphology Normal
[2021-04-25] MEDS ORDERED: SODIUM CHLORIDE 0.9% 500 ML 500 ML IV ONE (07:51)
--- NOTE | 2021-04-25 07:51 | Progress Note ---
Subjective Interval history: #renal function stable, no worse, Patient needs generous hydration, serial labs we will give her 500 cc normal saline bolus Detailed notes to follow Objective - Vital Signs Vital signs: Vital Signs - 12hr 04/24/21 04/24/21 04/24/21 20:01 21:01 22:00 Pulse Rate 91 H 89 Respiratory 20 22 Rate Blood Pressure 177/127 174/98 180/108 O2 Sat by Pulse 98 98 Oximetry 04/24/21 04/24/21 04/24/21 22:47 23:01 23:15 Pulse Rate 96 H 106 H 119 H Respiratory 15 19 Rate Blood Pressure 186/104 154/109 154/109 O2 Sat by Pulse 98 88 Oximetry 04/25/21 04/25/21 04/25/21 00:01 01:01 02:01 Pulse Rate 96 H 111 H 104 H Respiratory 18 18 14 Rate Blood Pressure 125/49 151/61 145/58 O2 Sat by Pulse 98 98 Oximetry 04/25/21 04/25/21 04/25/21 03:01 04:01 05:01 Pulse Rate 103 H 112 H 106 H Respiratory 16 34 H 21 Rate Blood Pressure 137/72 136/47 136/47 O2 Sat by Pulse 93 94 97 Oximetry 04/25/21 04/25/21 06:01 07:01 Pulse Rate 102 H 114 H Respiratory 18 13 Rate Blood Pressure 161/93 135/96 O2 Sat by Pulse 99 Oximetry - Lab 04/25/21 04:27 04/25/21 04:27 Most recent lab results Calcium 9.3 mg/dL (8.4-10.2) 04/25/21 04:27 Phosphorus 7.00 mg/dL (2.5-4.5) H 04/24/21 03:18 Magnesium 2.40 mg/dL (1.7-2.3) H 04/24/21 03:18 Medications & Allergies - Medications Allergies/Adverse Reactions: Allergies No Known Allergies Allergy (Verified 04/24/21 02:01) Active Medications: Generic Name Dose Route Start Last Admin Trade Name Freq PRN Reason Stop Dose Admin Acetaminophen 650 mg 04/24/21 03:32 Acetaminophen 325 Mg Tab PO Q4H PRN Pain MILD(1-3)/Fever >100.5/TOVAR Albuterol 2.5 mg 04/24/21 03:32 Albuterol 2.5 Mg/3 Ml Nebu IH Q4HRT PRN Shortness Of Breath Famotidine 20 mg 04/24/21 10:00 04/24/21 11:35 Famotidine 20 Mg/2 Ml Inj IV 20 mg DAILY LAKSHMI Administration Hydralazine HCl 10 mg 04/24/21 03:45 04/24/21 22:47 Hydralazine 20 Mg/1 Ml Inj IV 10 mg Q6H PRN Administration Blood Pressure Hydromorphone HCl 0.5 mg 04/24/21 03:32 Hydromorphone 1 Mg/1 Ml Inj IV Q3H PRN Pain , Severe (7-10) Insulin Human Regular 100 100 mls @ 1 mls/hr 04/24/21 04:00 04/24/21 23:02 units/ Sodium Chloride IV 8 units/hr TITR LAKSHMI 8 mls/hr Titration Protocol 1 UNITS/HR Sodium Chloride 1,000 mls @ 125 mls/hr 04/24/21 03:45 04/24/21 14:44 Nacl 0.9% 1000 Ml IV 125 mls/hr DIRECT LAKSHMI Administration Potassium Chloride/Dextrose/Sod Cl 20 meq in 1,000 mls @ 125 mls/hr 04/24/21 20:00 04/24/21 19:58 D5w/0.45% Nacl/Kcl 20 Meq IV 125 mls/hr DIRECT LAKSHMI Administration Potassium Chloride 10 meq in 100 mls @ 100 mls/hr 04/25/21 08:00 Kcl 10meq/100ml IV 04/25/21 11:59 Q1H LAKSHMI Labetalol HCl 10 mg 04/24/21 12:07 04/24/21 18:39 Labetalol 20 Mg/4 Ml Inj IV 10 mg Q4HR PRN Administration SBP > 160 Morphine Sulfate 2 mg 04/24/21 03:32 Morphine 2 Mg/1 Ml Inj IV Q4H PRN Pain, Moderate (4-6) Ondansetron HCl 4 mg 04/24/21 03:32 Ondansetron 4 Mg/2 Ml Inj IV Q8H PRN Nausea And Vomiting Sodium Chloride 10 ml 04/24/21 10:00 04/24/21 22:00 Sodium Chloride 0.9% 10 Ml Flush Syringe IV 10 ml BID LAKSHMI Administration Sodium Chloride 10 ml 04/24/21 03:32 Sodium Chloride 0.9% 10 Ml Flush Syringe IV PRN PRN LINE FLUSH Trazodone HCl 50 mg 04/24/21 22:00 04/24/21 22:00 Trazodone 50 Mg Tab PO 50 mg QHS LAKSHMI Administration
--- NOTE | 2021-04-25 07:58 | Progress Note ---
Assessment and Plan Assessment and plan: HPI: 35-year female with past medical history of diabetes type 1 and hypertension was brought to the emergency room because of altered mental status, weakness, dehydration and hyperglycemia. Apparently a family member called EMS as the patient appeared to be going in and out of consciousness. The patient is awake and alert for EMS and myself. She admits to being out of her insulin for the past week. She denies any headache, vision change, chest pain, shortness of breath, abdominal pain, vomiting. She also has a history of hypertension and was found to have an extremely elevated blood pressure with EMS and upon presentation here. BP was 240/165. Patient also complained of polydipsia and polyuria. In the emergency room patient is found to have DKA. Patient blood glucose 864. Bicarb 18 anion gap 32 BUN 25 and creatinine 2.0. We are going to put the patient on ICU with insulin drip will consult critical care evaluation Hospital course to date: 04/24: Gap remains open. Blood sugars in 300s. Will monitor on serial BMP. Plan to transition to weight-based Lantus and scheduled mealtime insulin once gap normalizes. Patient also noted to have acute renal failure and is likely high risk for progression of CKD given uncontrolled diabetes and hypertension. Nephrology recommendations are noted. Antihypertensive therapy started. Will monitor for improvement. Anticipate discharge in 48 to 72 hours. Will need diabetic education while she is here. Dietitian consulted 04/25: Gap remains open. Q1 hr BS checks. continue insulin gtt. fluids changed to D5 half-normal saline. Assessment and plan: (1) Diabetic ketoacidosis Status: Acute Plan to address problem: History of noncompliance, patient has been out of insulin for approximately 1 week now Admit the patient to the ICU. NPO. Normal saline at the rate of 125 cc/h. Insulin drip as per protocol. Transition to weight-based Lantus and scheduled mealtime insulin once gap normalizes We do the serial BMP. Will consult critical care evaluation and diabetic education. Recheck BMP in the morning (2) Acute renal failure Status: Acute Plan to address problem: Possibly from prerenal azotemia versus progression of diabetic nephropathy, poorly controlled blood sugar and blood pressure. avoid nephrotoxic drug. Normal saline at the rate of 125 cc/h. Renally dose medication. Recheck BMP in the morning. Nephrology is consulted (3) Hypertensive emergency Status: Acute Plan to address problem: Labetalol 10 mg IV every 6 hours as needed Start Norvasc 5 mg p.o. daily once patient able to Start hydralazine 100 mg p.o. 3 times daily once able to We continue the home medication. We will monitor the blood pressure closely (4) DVT prophylaxis Status: Acute Plan to address problem: SCD for DVT prophylaxis. Pepcid 20 mg p.o. twice daily for GI prophylaxis. Patient is a full code (4) Advance Care Planning Disease education conducted, care plan discussed, diagnoses discussed, prognosis discussed, patient is full code, patient acknowledges understanding and agree with care plan, +30 minutes. The high probability of a clinically significant, sudden or life threatening deterioration of the [cardio, endocrine, renal] system(s) required my full and direct attention, intervention and personal management. The aggregate critical care time was [60] minutes. This time is in addition to time spent performing reported procedures but includes the following: [x] Data Review and interpretation [x] Patient assessment and monitoring of vital signs [x] Documentation [x] Medication orders and management History Interval history: Patient nausea resolved. States her only complaint is IV site burning from p otassium infusion. Hospitalist Physical - Physical exam Narrative exam: Physical Exam: VITAL SIGNS: Reviewed. GENERAL: The patient appears normally developed, Vital signs as documented. HEAD: No signs of head trauma. EYES: Pupils are equal. Extraocular motions intact. EARS: Hearing grossly intact. MOUTH: Oropharynx is normal. NECK: No adenopathy, no JVD. CHEST: Chest with clear breath sounds bilaterally. No wheezes, rales, or rhonchi. CARDIAC: Regular rate and rhythm. S1 and S2, without murmurs, gallops, or rubs. VASCULAR: No Edema. Peripheral pulses normal and equal in all extremities. ABDOMEN: Soft, non tender and non distended. No rebound or guarding, and no masses palpated. Bowel Sounds normal. MUSCULOSKELETAL: Good range of motion of all major joints. Extremities without clubbing, cyanosis or edema. NEUROLOGIC EXAM: Alert and oriented x4. No focal sensory or strength deficits. PSYCHIATRIC: Mood normal. SKIN: detail exam as documented in skin assessment - Constitutional Vitals: Temp Pulse Resp BP Pulse Ox 97.3 F L 114 H 13 135/96 99 04/24/21 07:35 04/25/21 07:01 04/25/21 07:01 04/25/21 07:01 04/25/21 06:01 General appearance: Present: mild distress, well-nourished Results - Labs CBC & Chem 7: 04/25/21 04:27 04/25/21 12:00 Labs: Laboratory Last Values WBC 29.8 K/mm3 (4.5-11.0) H 04/25/21 04:27 RBC 4.71 M/mm3 (3.65-5.03) 04/25/21 04:27 Hgb 15.8 gm/dl (10.1-14.3) H 04/25/21 04:27 Hct 46.0 % (30.3-42.9) H 04/25/21 04:27 MCV 98 fl (79-97) H 04/25/21 04:27 MCH 34 pg (28-32) H 04/25/21 04:27 MCHC 34 % (30-34) 04/25/21 04:27 RDW 12.9 % (13.2-15.2) L 04/25/21 04:27 Plt Count 318 K/mm3 (140-440) 04/25/21 04:27 Add Manual Diff Complete 04/25/21 04:27 Total Counted 100 04/25/21 04:27 Seg Neutrophils % [employer] Erector 04/24/21 01:58 Seg Neuts % (Manual) 85.0 % (40.0-70.0) H 04/25/21 04:27 Band Neutrophils % 7.0 % 04/25/21 04:27 Lymphocytes % (Manual) 6.0 % (13.4-35.0) L 04/25/21 04:27 Monocytes % (Manual) 2.0 % (0.0-7.3) 04/25/21 04:27 Nucleated RBC % Not Reportable 04/25/21 04:27 Seg Neutrophils # Man 25.3 K/mm3 (1.8-7.7) H 04/25/21 04:27 Band Neutrophils # 2.1 K/mm3 04/25/21 04:27 Lymphocytes # (Manual) 1.8 K/mm3 (1.2-5.4) 04/25/21 04:27 Abs React Lymphs (Man) 0.0 K/mm3 04/25/21 04:27 Monocytes # (Manual) 0.6 K/mm3 (0.0-0.8) 04/25/21 04:27 Eosinophils # (Manual) 0.0 K/mm3 (0.0-0.4) 04/25/21 04:27 Basophils # (Manual) 0.0 K/mm3 (0.0-0.1) 04/25/21 04:27 Metamyelocytes # 0.0 K/mm3 04/25/21 04:27 Myelocytes # 0.0 K/mm3 04/25/21 04:27 Promyelocytes # 0.0 K/mm3 04/25/21 04:27 Blast Cells # 0.0 K/mm3 04/25/21 04:27 WBC Morphology Not Reportable 04/25/21 04:27 WBC Morphology TNR 04/25/21 04:27 Hypersegmented Neuts Not Reportable 04/25/21 04:27 Hyposegmented Neuts Not Reportable 04/25/21 04:27 Hypogranular Neuts Not Reportable 04/25/21 04:27 Smudge Cells Not Reportable 04/25/21 04:27 Toxic Granulation Not Reportable 04/25/21 04:27 Toxic Vacuolation Not Reportable 04/25/21 04:27 Dohle Bodies Not Reportable 04/25/21 04:27 Pelger-Huet Anomaly Not Reportable 04/25/21 04:27 Lucero Rods Not Reportable 04/25/21 04:27 Platelet Estimate Not Reportable 04/25/21 04:27 Clumped Platelets Not Reportable 04/25/21 04:27 Plt Clumps, EDTA Not Reportable 04/25/21 04:27 Large Platelets Not Reportable 04/25/21 04:27 Giant Platelets Not Reportable 04/25/21 04:27 Platelet Satelliting Not Reportable 04/25/21 04:27 Plt Morphology Comment Not Reportable 04/25/21 04:27 RBC Morphology Normal 04/25/21 04:27 Dimorphic RBCs Not Reportable 04/25/21 04:27 Polychromasia Not Reportable 04/25/21 04:27 Hypochromasia Not Reportable 04/25/21 04:27 Poikilocytosis Not Reportable 04/25/21 04:27 Anisocytosis Not Reportable 04/25/21 04:27 Microcytosis Not Reportable 04/25/21 04:27 Macrocytosis Not Reportable 04/25/21 04:27 Spherocytes Not Reportable 04/25/21 04:27 Pappenheimer Bodies Not Reportable 04/25/21 04:27 Sickle Cells Not Reportable 04/25/21 04:27 Target Cells Not Reportable 04/25/21 04:27 Tear Drop Cells Not Reportable 04/25/21 04:27 Ovalocytes Not Reportable 04/25/21 04:27 Helmet Cells Not Reportable 04/25/21 04:27 Sykes-Triplett Bodies Not Reportable 04/25/21 04:27 [place] Rings Not Reportable 04/25/21 04:27 [place] Cells Not Reportable 04/25/21 04:27 Bite Cells Not Reportable 04/25/21 04:27 Crenated Cell Not Reportable 04/25/21 04:27 Elliptocytes Not Reportable 04/25/21 04:27 Acanthocytes (Spur) Not Reportable 04/25/21 04:27 Rouleaux Not Reportable 04/25/21 04:27 Hemoglobin C Crystals Not Reportable 04/25/21 04:27 Schistocytes Not Reportable 04/25/21 04:27 Malaria parasites Not Reportable 04/25/21 04:27 [place] Bodies Not Reportable 04/25/21 04:27 Hem Pathologist Commnt No 04/25/21 04:27 VBG pH 7.329 (7.320-7.420) 04/24/21 01:58 Sodium 138 mmol/L (137-145) 04/25/21 04:27 Potassium 3.2 mmol/L (3.6-5.0) L 04/25/21 04:27 Chloride 102.1 mmol/L (98-107) 04/25/21 04:27 Carbon Dioxide 18 mmol/L (22-30) L 04/25/21 04:27 Anion Gap 21 mmol/L 04/25/21 04:27 BUN 31 mg/dL (7-17) H 04/25/21 04:27 Creatinine 1.9 mg/dL (0.6-1.2) H 04/25/21 04:27 Estimated GFR 36 ml/min 04/25/21 04:27 BUN/Creatinine Ratio 16 % 04/25/21 04:27 Glucose 171 mg/dL (65-100) H 04/25/21 04:27 POC Glucose 347 mg/dL (70-105) H 04/25/21 06:56 Ketones Quantitative Small (Negative) 04/24/21 01:58 Osmolality 343 Mosm/kg 04/24/21 03:18 Calcium 9.3 mg/dL (8.4-10.2) 04/25/21 04:27 Phosphorus 7.00 mg/dL (2.5-4.5) H 04/24/21 03:18 Magnesium 2.40 mg/dL (1.7-2.3) H 04/24/21 03:18 Total Bilirubin 0.50 mg/dL (0.1-1.2) 04/25/21 04:27 Direct Bilirubin < 0.2 mg/dL (0-0.2) 04/24/21 01:58 Indirect Bilirubin 0.1 mg/dL 04/24/21 01:58 AST 20 units/L (5-40) 04/25/21 04:27 ALT 7 units/L (7-56) 04/25/21 04:27 Alkaline Phosphatase 112 units/L (35-129) 04/25/21 04:27 Total Protein 6.8 g/dL (6.3-8.2) 04/25/21 04:27 Albumin 3.1 g/dL (3.9-5) L 04/25/21 04:27 Albumin/Globulin Ratio 0.8 % 04/25/21 04:27 HCG, Qual Negative (Negative) 04/24/21 01:58 Active Medications - Current Medications Current Medications: Generic Name Dose Route Start Last Admin Trade Name Freq PRN Reason Stop Dose Admin Acetaminophen 650 mg 04/24/21 03:32 Acetaminophen 325 Mg Tab PO Q4H PRN Pain MILD(1-3)/Fever >100.5/TOVAR Albuterol 2.5 mg 04/24/21 03:32 Albuterol 2.5 Mg/3 Ml Nebu IH Q4HRT PRN Shortness Of Breath Famotidine 20 mg 04/24/21 10:00 04/24/21 11:35 Famotidine 20 Mg/2 Ml Inj IV 20 mg DAILY LAKSHMI Administration Hydralazine HCl 10 mg 04/24/21 03:45 04/24/21 22:47 Hydralazine 20 Mg/1 Ml Inj IV 10 mg Q6H PRN Administration Blood Pressure Hydromorphone HCl 0.5 mg 04/24/21 03:32 Hydromorphone 1 Mg/1 Ml Inj IV Q3H PRN Pain , Severe (7-10) Insulin Human Regular 100 100 mls @ 1 mls/hr 04/24/21 04:00 04/24/21 23:02 units/ Sodium Chloride IV 8 units/hr TITR LAKSHMI 8 mls/hr Titration Protocol 1 UNITS/HR Sodium Chloride 1,000 mls @ 125 mls/hr 04/24/21 03:45 04/24/21 14:44 Nacl 0.9% 1000 Ml IV 125 mls/hr DIRECT LAKSHMI Administration Potassium Chloride/Dextrose/Sod Cl 20 meq in 1,000 mls @ 125 mls/hr 04/24/21 20:00 04/24/21 19:58 D5w/0.45% Nacl/Kcl 20 Meq IV 125 mls/hr DIRECT LAKSHMI Administration Potassium Chloride 10 meq in 100 mls @ 100 mls/hr 04/25/21 08:00 Kcl 10meq/100ml IV 04/25/21 11:59 Q1H LAKSHMI Sodium Chloride 500 mls @ 999 mls/hr 04/25/21 07:51 Nacl 0.9% 500 Ml IV 04/25/21 08:21 ONCE ONE Labetalol HCl 10 mg 04/24/21 12:07 04/24/21 18:39 Labetalol 20 Mg/4 Ml Inj IV 10 mg Q4HR PRN Administration SBP > 160 Morphine Sulfate 2 mg 04/24/21 03:32 Morphine 2 Mg/1 Ml Inj IV Q4H PRN Pain, Moderate (4-6) Ondansetron HCl 4 mg 04/24/21 03:32 Ondansetron 4 Mg/2 Ml Inj IV Q8H PRN Nausea And Vomiting Sodium Chloride 10 ml 04/24/21 10:00 04/24/21 22:00 Sodium Chloride 0.9% 10 Ml Flush Syringe IV 10 ml BID LAKSHMI Administration Sodium Chloride 10 ml 04/24/21 03:32 Sodium Chloride 0.9% 10 Ml Flush Syringe IV PRN PRN LINE FLUSH Trazodone HCl 50 mg 04/24/21 22:00 04/24/21 22:00 Trazodone 50 Mg Tab PO 50 mg QHS LAKSHMI Administration Nutrition/Malnutrition Assess - Dietary Evaluation Nutrition/Malnutrition Findings: Nutrition Notes Start: 04/24/21 1 2:11 Freq: Status: Active Protocol: Document 04/24/21 12:11 GB (Rec: 04/24/21 12:28 GB [id number]) Nutrition Notes Need for Assessment generated from: MD Order,Education Initial or Follow up Assessment Current Diagnosis Diabetes,Hypertension Other Pertinent Diagnosis AMS, DKA, Acute renal failure, hyperglycemia Current Diet NPO Labs/Tests 04/24: Na 137, K 3.8, BUN 29, Creatinine 2, glucose 858 04/24: Na 146, K 3.4, BUN 30, Creatinine 2.1, gluocse 334 ( showing improvement), Pertinent Medications NaCl bolus 1000ml Height 5 ft 7 in Weight 68.039 kg [place] Body Weight (kg) 61.36 BMI 23.5 Weight change and time frame admit weight. No reported weight changes at time of assessment Weight Status Appropriate Subjective/Other Information MD consult for nutrition recommendations, diet evaluation H/P: out of insulin for past week, BP 240/165 Percent of energy/protein needs met: 0% - currently NPO Burn Absent Trauma Absent GI Symptoms None Food Allergy No Skin Integrity/Comment no complications reported Current % PO Other Minimum of two criteria No #1 Nutrition Diagnosis Food and nutrition-related knowledge deficit Etiology DKA As Evidenced by Signs and Symptoms MD consult for nutrition education, nutrition related labs elevated see labs 04/24 Is patient on ventilator? No Is Patient Ambulatory and/or Out of Bed Yes REE-([facility]-ambulatory/OOB) [ 1830.426 [id number]] Kcal/Kg value to use for calculation 25 Approximate Energy Requirements Using 1701 kcal/Kg Calculation Used for Recommendations Kcal/kg Additional Notes Protein: 1-1.2 g/kg @ 68k -82g Fluids: 1 ml/kcal or per MD Nutrition Intervention Change Diet Order: Advance to consistent carbohydrate when medically feasible Nutrition Support: n/a Add Supplement/Snack (indicate name/kcal n/a /protein ) Education Handouts Provided Review/provide AND: general healthy nutrition education packet with tips for managing DM at F/U and/or when admitted to floor Goal #1 Diet advanced to Consistent Carbohydrate by f/u Goal #2 PO intake of meals to be 75% or greater during LOS Goal #3 Review/provide AND: general healthy nutrition education packet with tips for managing DM at f/u and/or when admitted to floor Follow-Up By: 04/28/21 Additional Comments F/U: Review/provide AND: general healthy nutrition education packet with tips for managing DM
[2021-04-25] MEDS: POTASSIUM CHLORIDE 10 MEQ 10 MEQ/100 ML BAG IV SCH ×4 (08:42→18:49)
[2021-04-25] MEDS ORDERED: D5W/0.45% NACL/KCL 20 MEQ 20 MEQ/1,000 ML BAG IV SCH (10:00)
[2021-04-25] MEDS: INSULIN REGULAR, HUMAN 100 UNITS in SODIUM CHLORIDE 0.9% 99 ML IV SCH (10:49)
--- NOTE | 2021-04-25 11:42 | Progress Note ---
Assessment and Plan 35 y/o female admitted with DKA and acute renal failure. 04/25/21: Need to get patient upstairs irineo. Continue insulin drip. Needs more volume. Guarded prognosis. Need to stop D5 with K and change to normal saline with K until sugar is less than 250. 1. Agree with current assessment and plan of care by IMS team. Continue ICU status until gap closes and patient can be transitioned off insulin drip. Q1 hour FSBS CCT 31 minutes. Subjective Date of service: 04/25/21 Interval history: Still in DKA, gap is worsening. Objective - Constitutional Vitals: Vital Signs - 12hr 04/25/21 04/25/21 04/25/21 00:01 01:01 02:01 Temperature Pulse Rate 96 H 111 H 104 H Respiratory 18 18 14 Rate Blood Pressure 125/49 151/61 145/58 Blood Pressure [Left] O2 Sat by Pulse 98 98 Oximetry 04/25/21 04/25/21 04/25/21 03:01 04:01 05:01 Temperature Pulse Rate 103 H 112 H 106 H Respiratory 16 34 H 21 Rate Blood Pressure 137/72 136/47 136/47 Blood Pressure [Left] O2 Sat by Pulse 93 94 97 Oximetry 04/25/21 04/25/21 04/25/21 06:01 07:01 08:00 Temperature 98.3 F Pulse Rate 102 H 114 H 113 H Respiratory 18 13 13 Rate Blood Pressure 161/93 135/96 Blood Pressure 174/98 [Left] O2 Sat by Pulse 99 100 Oximetry 04/25/21 04/25/21 08:01 08:30 Temperature Pulse Rate Respiratory 12 Rate Blood Pressure 160/89 Blood Pressure [Left] O2 Sat by Pulse 99 100 Oximetry - Labs CBC & Chem 7: 04/25/21 04:27 04/25/21 04:27 Labs: Abnormal lab results 04/24/21 04/24/21 04/24/21 Range/Units 11:03 13:11 13:12 WBC (4.5-11.0) K/mm3 Hgb (10.1-14.3) gm/dl Hct (30.3-42.9) % MCV (79-97) fl MCH (28-32) pg RDW (13.2-15.2) % Seg Neuts % (Manual) (40.0-70.0) % Lymphocytes % (Manual) (13.4-35.0) % Seg Neutrophils # Man (1.8-7.7) K/mm3 Sodium 146 H D 147 H (137-145) mmol/L Potassium 3.4 L (3.6-5.0) mmol/L Chloride 107.4 H (98-107) mmol/L Carbon Dioxide 21 L (22-30) mmol/L BUN 30 H (7-17) mg/dL Creatinine 1.9 H (0.6-1.2) mg/dL Glucose 208 H (65-100) mg/dL POC Glucose 191 H (70-105) mg/dL Albumin (3.9-5) g/dL 04/24/21 04/24/21 04/24/21 Range/Units 14:37 18:11 18:53 WBC (4.5-11.0) K/mm3 Hgb (10.1-14.3) gm/dl Hct (30.3-42.9) % MCV (79-97) fl MCH (28-32) pg RDW (13.2-15.2) % Seg Neuts % (Manual) (40.0-70.0) % Lymphocytes % (Manual) (13.4-35.0) % Seg Neutrophils # Man (1.8-7.7) K/mm3 Sodium (137-145) mmol/L Potassium 3.3 L (3.6-5.0) mmol/L Chloride (98-107) mmol/L Carbon Dioxide 21 L (22-30) mmol/L BUN 30 H (7-17) mg/dL Creatinine 1.8 H (0.6-1.2) mg/dL Glucose 147 H (65-100) mg/dL POC Glucose 293 H 179 H (70-105) mg/dL Albumin (3.9-5) g/dL 04/24/21 04/25/21 04/25/21 Range/Units 22:44 02:17 04:27 WBC 29.8 H (4.5-11.0) K/mm3 Hgb 15.8 H (10.1-14.3) gm/dl Hct 46.0 H (30.3-42.9) % MCV 98 H (79-97) fl MCH 34 H (28-32) pg RDW 12.9 L (13.2-15.2) % Seg Neuts % (Manual) 85.0 H (40.0-70.0) % Lymphocytes % (Manual) 6.0 L (13.4-35.0) % Seg Neutrophils # Man 25.3 H (1.8-7.7) K/mm3 Sodium (137-145) mmol/L Potassium (3.6-5.0) mmol/L Chloride (98-107) mmol/L Carbon Dioxide (22-30) mmol/L BUN (7-17) mg/dL Creatinine (0.6-1.2) mg/dL Glucose (65-100) mg/dL POC Glucose 232 H 106 H (70-105) mg/dL Albumin (3.9-5) g/dL 04/25/21 04/25/21 04/25/21 Range/Units 04:27 04:58 06:56 WBC (4.5-11.0) K/mm3 Hgb (10.1-14.3) gm/dl Hct (30.3-42.9) % MCV (79-97) fl MCH (28-32) pg RDW (13.2-15.2) % Seg Neuts % (Manual) (40.0-70.0) % Lymphocytes % (Manual) (13.4-35.0) % Seg Neutrophils # Man (1.8-7.7) K/mm3 Sodium (137-145) mmol/L Potassium 3.2 L (3.6-5.0) mmol/L Chloride (98-107) mmol/L Carbon Dioxide 18 L (22-30) mmol/L BUN 31 H (7-17) mg/dL Creatinine 1.9 H (0.6-1.2) mg/dL Glucose 171 H (65-100) mg/dL POC Glucose 204 H 347 H (70-105) mg/dL Albumin 3.1 L (3.9-5) g/dL 04/25/21 04/25/21 Range/Units 08:44 10:49 WBC (4.5-11.0) K/mm3 Hgb (10.1-14.3) gm/dl Hct (30.3-42.9) % MCV (79-97) fl MCH (28-32) pg RDW (13.2-15.2) % Seg Neuts % (Manual) (40.0-70.0) % Lymphocytes % (Manual) (13.4-35.0) % Seg Neutrophils # Man (1.8-7.7) K/mm3 Sodium (137-145) mmol/L Potassium (3.6-5.0) mmol/L Chloride (98-107) mmol/L Carbon Dioxide (22-30) mmol/L BUN (7-17) mg/dL Creatinine (0.6-1.2) mg/dL Glucose (65-100) mg/dL POC Glucose 408 H 349 H (70-105) mg/dL Albumin (3.9-5) g/dL Medications & Allergies - Medications Allergies/Adverse Reactions: Allergies No Known Allergies Allergy (Verified 04/24/21 02:01) Active Medications: Generic Name Dose Route Start Last Admin Trade Name Freq PRN Reason Stop Dose Admin Acetaminophen 650 mg 04/24/21 03:32 Acetaminophen 325 Mg Tab PO Q4H PRN Pain MILD(1-3)/Fever >100.5/TOVAR Albuterol 2.5 mg 04/24/21 03:32 Albuterol 2.5 Mg/3 Ml Nebu IH Q4HRT PRN Shortness Of Breath Famotidine 20 mg 04/24/21 10:00 04/24/21 11:35 Famotidine 20 Mg/2 Ml Inj IV 20 mg DAILY LAKSHMI Administration Hydralazine HCl 10 mg 04/24/21 03:45 04/24/21 22:47 Hydralazine 20 Mg/1 Ml Inj IV 10 mg Q6H PRN Administration Blood Pressure Hydromorphone HCl 0.5 mg 04/24/21 03:32 Hydromorphone 1 Mg/1 Ml Inj IV Q3H PRN Pain , Severe (7-10) Insulin Human Regular 100 100 mls @ 1 mls/hr 04/24/21 04:00 04/25/21 10:49 units/ Sodium Chloride IV 18 units/hr TITR LAKSHMI 18 mls/hr Administration Protocol 1 UNITS/HR Sodium Chloride 1,000 mls @ 125 mls/hr 04/24/21 03:45 04/24/21 14:44 Nacl 0.9% 1000 Ml IV 125 mls/hr DIRECT LAKSHMI Administration Potassium Chloride 10 meq in 100 mls @ 100 mls/hr 04/25/21 08:00 04/25/21 10:46 Kcl 10meq/100ml IV 04/25/21 11:59 100 mls/hr Q1H LAKSHMI Administration Potassium Chloride/Dextrose/Sod Cl 20 meq in 1,000 mls @ 200 mls/hr 04/25/21 10:00 04/25/21 10:47 D5w/0.45% Nacl/Kcl 20 Meq IV 200 mls/hr DIRECT LAKSHMI Administration Labetalol HCl 10 mg 04/24/21 12:07 04/24/21 18:39 Labetalol 20 Mg/4 Ml Inj IV 10 mg Q4HR PRN Administration SBP > 160 Morphine Sulfate 2 mg 04/24/21 03:32 Morphine 2 Mg/1 Ml Inj IV Q4H PRN Pain, Moderate (4-6) Ondansetron HCl 4 mg 04/24/21 03:32 Ondansetron 4 Mg/2 Ml Inj IV Q8H PRN Nausea And Vomiting Sodium Chloride 10 ml 04/24/21 10:00 04/24/21 22:00 Sodium Chloride 0.9% 10 Ml Flush Syringe IV 10 ml BID LAKSHMI Administration Sodium Chloride 10 ml 04/24/21 03:32 Sodium Chloride 0.9% 10 Ml Flush Syringe IV PRN PRN LINE FLUSH Trazodone HCl 50 mg 04/24/21 22:00 04/24/21 22:00 Trazodone 50 Mg Tab PO 50 mg QHS LAKSHMI Administration
[2021-04-25] MEDS: FAMOTIDINE 20 MG/2 ML INJ IV SCH (12:02)
[2021-04-25 13:31] LABS: Calcium 8.9 mg/dL (8.4-10.2)
[2021-04-25] MEDS: D5W/0.45% NACL 1,000 ML IV SCH ×2 (14:48→23:42)
[2021-04-25] MEDS: ACETAMINOPHEN 325 MG TAB PO PRN (20:16)
[2021-04-25] MEDS: hydrALAZINE 20 MG/1 ML INJ IV PRN (20:25)
[2021-04-25] MEDS: traZODone 50 MG TAB PO SCH (23:42)
[2021-04-26 00:57] LABS: Calcium 8.5 mg/dL (8.4-10.2)
[2021-04-26 07:00] LABS: Calcium 8.8 mg/dL (8.4-10.2)
[2021-04-26] MEDS: INSULIN LISPRO 100 UNIT/ML SUB-Q SCH ×6 (07:02→22:19)
[2021-04-26] MEDS ORDERED: INSULIN REGULAR, HUMAN 100 UNITS/1 ML SUB-Q ONE (08:42)
--- NOTE | 2021-04-26 10:24 | Progress Note ---
Subjective Interval history: Patient was seen today for follow-up of multiple renal related issues No complaints of any chest pain pressure or shortness of breath Patient remains acidotic blood sugar still remains high Bicarbonate still remains low creatinine is relatively stable Interdisciplinary notes that also reviewed Events of 24 hours vitals labs intake output medications were reviewed Past medical history: Reviewed Family history: Reviewed Social history: Reviewed Allergies: Reviewed Physical examination: Vitals: Reviewed HEENT: No pallor or icterus oral mucosa moist Neck: Supple no JVD no thyromegaly Chest: Bilateral clear to auscultation anteriorly Heart: Regular rate and rhythm S1-S2 heard no S3-S4 Abdomen: Soft nontender no voluntary guarding rigidity rebound Extremity: dry skin no edema Psychiatric: No evidence of agitation and aggression noted Dermatology: No petechial rashes Labs and x-rays: Reviewed from today Assessment and plan #renal failure patient still has severe hyperglycemia and should be maintained o n insulin drip to close the gap, This will also correct the metabolic acidosis that she has because of diabetic ketoacidosis Order for a lactic acid level, generous hydration close follow-up in renal function #Pseudohyponatremia patient's corrected sodium is close to normal #Diabetes mellitus with ketoacidosis blood sugar still remains very high suggest insulin drip #Patient still appears to be volume depleted #Borderline magnesium consider supplementation with at least 1 g We'll continue to follow and make recommendation for renal standpoint Objective - Vital Signs Vital signs: Vital Signs - 12hr 04/25/21 04/26/21 04/26/21 23:44 00:00 01:00 EST Temperature Pulse Rate 115 H 114 H 121 H Respiratory 25 H 16 19 Rate Blood Pressure 145/83 140/81 148/80 O2 Sat by Pulse 99 99 99 Oximetry 04/26/21 04/26/21 04/26/21 02:00 03:00 04:00 Temperature Pulse Rate 124 H 119 H 122 H Respiratory 25 H 19 16 Rate Blood Pressure 141/76 146/90 145/86 O2 Sat by Pulse 99 99 99 Oximetry 04/26/21 04/26/21 04/26/21 04:10 04:20 04:30 Temperature Pulse Rate 122 H 123 H 129 H Respiratory 23 20 20 Rate Blood Pressure 145/86 145/86 144/91 O2 Sat by Pulse 99 99 99 Oximetry 04/26/21 04/26/21 04/26/21 04:40 04:50 05:00 Temperature Pulse Rate 134 H 123 H 118 H Respiratory 18 18 18 Rate Blood Pressure 144/91 144/91 160/96 O2 Sat by Pulse 97 99 99 Oximetry 04/26/21 04/26/21 04/26/21 05:10 06:14 06:50 Temperature 98.7 F Pulse Rate 118 H 119 H 115 H Respiratory 26 H 18 20 Rate Blood Pressure 160/96 156/87 O2 Sat by Pulse 98 99 100 Oximetry 04/26/21 08:46 Temperature 97.6 F Pulse Rate 113 H Respiratory 18 Rate Blood Pressure 163/97 O2 Sat by Pulse 100 Oximetry - Lab 04/25/21 04:27 04/26/21 06:01 Most recent lab results Calcium 8.8 mg/dL (8.4-10.2) 04/26/21 06:01 Phosphorus 3.00 mg/dL (2.5-4.5) 04/26/21 06:01 Magnesium 1.70 mg/dL (1.7-2.3) 04/26/21 06:01 Medications & Allergies - Medications Allergies/Adverse Reactions: Allergies No Known Allergies Allergy (Verified 04/24/21 02:01) Active Medications: Generic Name Dose Route Start Last Admin Trade Name Freq PRN Reason Stop Dose Admin Acetaminophen 650 mg 04/24/21 03:32 04/25/21 20:16 Acetaminophen 325 Mg Tab PO 650 mg Q4H PRN Administration Pain MILD(1-3)/Fever >100.5/TOVAR Albuterol 2.5 mg 04/24/21 03:32 Albuterol 2.5 Mg/3 Ml Nebu IH Q4HRT PRN Shortness Of Breath Famotidine 20 mg 04/24/21 10:00 04/25/21 12:02 Famotidine 20 Mg/2 Ml Inj IV 20 mg DAILY LAKSHMI Administration Hydralazine HCl 10 mg 04/24/21 03:45 04/25/21 20:25 Hydralazine 20 Mg/1 Ml Inj IV 10 mg Q6H PRN Administration Blood Pressure Sodium Chloride 1,000 mls @ 125 mls/hr 04/24/21 03:45 04/24/21 14:44 Nacl 0.9% 1000 Ml IV 125 mls/hr DIRECT LAKSHMI Administration Dextrose/Sodium Chloride 1,000 mls @ 125 mls/hr 04/25/21 14:00 11/06/21 23:42 D5/0.45ns IV 125 mls/hr DIRECT LAKSHMI Administration Insulin Glargine 15 units 04/27/21 08:00 Insulin Glargine 100 Units/Ml SUB-Q QAMDIAB LAKSHMI Insulin Human Lispro 0 unit 04/26/21 07:30 Insulin Lispro 100 Unit/Ml SUB-Q ACHS LAKSHMI Protocol Insulin Human Lispro 5 unit 04/26/21 12:00 Insulin Lispro 100 Unit/Ml SUB-Q Q6HR [facility] Labetalol HCl 10 mg 04/24/21 12:07 04/25/21 20:19 Labetalol 20 Mg/4 Ml Inj IV 10 mg Q4HR PRN Administration SBP > 160 Ondansetron HCl 4 mg 04/24/21 03:32 Ondansetron 4 Mg/2 Ml Inj IV Q8H PRN Nausea And Vomiting Sodium Chloride 10 ml 04/24/21 10:00 04/26/21 05:51 Sodium Chloride 0.9% 10 Ml Flush Syringe IV Not Given BID LAKSHMI Sodium Chloride 10 ml 04/24/21 03:32 Sodium Chloride 0.9% 10 Ml Flush Syringe IV PRN PRN LINE FLUSH Trazodone HCl 50 mg 04/24/21 22:00 04/25/21 23:42 Trazodone 50 Mg Tab PO 50 mg QHS LAKSHMI Administration
--- NOTE | 2021-04-26 10:57 | Progress Note ---
Assessment and Plan Assessment and plan: HPI: 35-year female with past medical history of diabetes type 1 and hypertension was brought to the emergency room because of altered mental status, weakness, dehydration and hyperglycemia. Apparently a family member called EMS as the patient appeared to be going in and out of consciousness. The patient is awake and alert for EMS and myself. She admits to being out of her insulin for the past week. She denies any headache, vision change, chest pain, shortness of breath, abdominal pain, vomiting. She also has a history of hypertension and was found to have an extremely elevated blood pressure with EMS and upon presentation here. BP was 240/165. Patient also complained of polydipsia and polyuria. In the emergency room patient is found to have DKA. Patient blood glucose 864. Bicarb 18 anion gap 32 BUN 25 and creatinine 2.0. We are going to put the patient on ICU with insulin drip will consult critical care evaluation Hospital course to date: 04/24: Gap remains open. Blood sugars in 300s. Will monitor on serial BMP. Plan to transition to weight-based Lantus and scheduled mealtime insulin once gap normalizes. Patient also noted to have acute renal failure and is likely high risk for progression of CKD given uncontrolled diabetes and hypertension. Nephrology recommendations are noted. Antihypertensive therapy started. Will monitor for improvement. Anticipate discharge in 48 to 72 hours. Will need diabetic education while she is here. Dietitian consulted 04/25: Gap remains open. Q1 hr BS checks. continue insulin gtt. fluids changed to D5 half-normal saline. 04/26: BG remains uncontrolled. Prematurely d/c off insulin gtt overnight, GAP remains elevated to 18 with blood sugars in 400s! Ordered stat regular insulin 20 unit x1. Started lantus 15 units qhs and started regular insulin 5 units q6hr. Will follow up repeat sugars in afternoon. Continue NPO for now except sips/chips. Assessment and plan: (1) Diabetic ketoacidosis Status: Acute Plan to address problem: History of noncompliance, patient has been out of insulin for approximately 1 week now Admit the patient to the ICU. NPO. Normal saline at the rate of 125 cc/h. Insulin drip as per protocol. Transition to weight-based Lantus and scheduled mealtime insulin once gap normalizes We do the serial BMP. Will consult critical care evaluation and diabetic education. Recheck BMP in the morning (2) Acute renal failure Status: Acute Plan to address problem: Possibly from prerenal azotemia versus progression of diabetic nephropathy, poorly controlled blood sugar and blood pressure. avoid nephrotoxic drug. Normal saline at the rate of 125 cc/h. Renally dose medication. Recheck BMP in the morning. Nephrology is consulted (3) Hypertensive emergency Status: Acute Plan to address problem: Labetalol 10 mg IV every 6 hours as needed Start Norvasc 5 mg p.o. daily once patient able to Start hydralazine 100 mg p.o. 3 times daily once able to We continue the home medication. We will monitor the blood pressure closely (4) DVT prophylaxis Status: Acute Plan to address problem: SCD for DVT prophylaxis. Pepcid 20 mg p.o. twice daily for GI prophylaxis. Patient is a full code (4) Advance Care Planning Disease education conducted, care plan discussed, diagnoses discussed, prognosis discussed, patient is full code, patient acknowledges understanding and agree with care plan, +30 minutes. The high probability of a clinically significant, sudden or life threatening deterioration of the [cardio, endocrine, renal] system(s) required my full and direct attention, intervention and personal management. The aggregate critical care time was [60] minutes. This time is in addition to time spent performing reported procedures but includes the following: [x] Data Review and interpretation [x] Patient assessment and monitoring of vital signs [x] Documentation [x] Medication orders and management History Interval history: Resting comfortably. Hospitalist Physical - Physical exam Narrative exam: Physical Exam: VITAL SIGNS: Reviewed. GENERAL: The patient appears normally developed, Vital signs as documented. HEAD: No signs of head trauma. EYES: Pupils are equal. Extraocular motions intact. EARS: Hearing grossly intact. MOUTH: Oropharynx is normal. NECK: No adenopathy, no JVD. CHEST: Chest with clear breath sounds bilaterally. No wheezes, rales, or rhonchi. CARDIAC: Regular rate and rhythm. S1 and S2, without murmurs, gallops, or rubs. VASCULAR: No Edema. Peripheral pulses normal and equal in all extremities. ABDOMEN: Soft, non tender and non distended. No rebound or guarding, and no masses palpated. Bowel Sounds normal. MUSCULOSKELETAL: Good range of motion of all major joints. Extremities without clubbing, cyanosis or edema. NEUROLOGIC EXAM: Alert and oriented x4. No focal sensory or strength deficits. PSYCHIATRIC: Mood normal. SKIN: detail exam as documented in skin assessment - Constitutional Vitals: Temp Pulse Resp BP Pulse Ox 97.6 F 113 H 18 163/97 98 04/26/21 08:46 04/26/21 08:46 04/26/21 08:46 04/26/21 08:46 04/26/21 10:37 General appearance: Present: mild distress, well-nourished Results - Labs CBC & Chem 7: 04/25/21 04:27 04/26/21 06:01 Labs: Laboratory Last Values WBC 29.8 K/mm3 (4.5-11.0) H 04/25/21 04:27 RBC 4.71 M/mm3 (3.65-5.03) 04/25/21 04:27 Hgb 15.8 gm/dl (10.1-14.3) H 04/25/21 04:27 Hct 46.0 % (30.3-42.9) H 04/25/21 04:27 MCV 98 fl (79-97) H 04/25/21 04:27 MCH 34 pg (28-32) H 04/25/21 04:27 MCHC 34 % (30-34) 04/25/21 04:27 RDW 12.9 % (13.2-15.2) L 04/25/21 04:27 Plt Count 318 K/mm3 (140-440) 04/25/21 04:27 Add Manual Diff Complete 04/25/21 04:27 Total Counted 100 04/25/21 04:27 Seg Neutrophils % Collar Tacker 04/24/21 01:58 Seg Neuts % (Manual) 85.0 % (40.0-70.0) H 04/25/21 04:27 Band Neutrophils % 7.0 % 04/25/21 04:27 Lymphocytes % (Manual) 6.0 % (13.4-35.0) L 04/25/21 04:27 Monocytes % (Manual) 2.0 % (0.0-7.3) 04/25/21 04:27 Nucleated RBC % Not Reportable 04/25/21 04:27 Seg Neutrophils # Man 25.3 K/mm3 (1.8-7.7) H 04/25/21 04:27 Band Neutrophils # 2.1 K/mm3 04/25/21 04:27 Lymphocytes # (Manual) 1.8 K/mm3 (1.2-5.4) 04/25/21 04:27 Abs React Lymphs (Man) 0.0 K/mm3 04/25/21 04:27 Monocytes # (Manual) 0.6 K/mm3 (0.0-0.8) 04/25/21 04:27 Eosinophils # (Manual) 0.0 K/mm3 (0.0-0.4) 04/25/21 04:27 Basophils # (Manual) 0.0 K/mm3 (0.0-0.1) 04/25/21 04:27 Metamyelocytes # 0.0 K/mm3 04/25/21 04:27 Myelocytes # 0.0 K/mm3 04/25/21 04:27 Promyelocytes # 0.0 K/mm3 04/25/21 04:27 Blast Cells # 0.0 K/mm3 04/25/21 04:27 WBC Morphology Not Reportable 04/25/21 04:27 WBC Morphology TNR 04/25/21 04:27 Hypersegmented Neuts Not Reportable 04/25/21 04:27 Hyposegmented Neuts Not Reportable 04/25/21 04:27 Hypogranular Neuts Not Reportable 04/25/21 04:27 Smudge Cells Not Reportable 04/25/21 04:27 Toxic Granulation Not Reportable 04/25/21 04:27 Toxic Vacuolation Not Reportable 04/25/21 04:27 Dohle Bodies Not Reportable 04/25/21 04:27 Pelger-Huet Anomaly Not Reportable 04/25/21 04:27 Lucero Rods Not Reportable 04/25/21 04:27 Platelet Estimate Not Reportable 04/25/21 04:27 Clumped Platelets Not Reportable 04/25/21 04:27 Plt Clumps, EDTA Not Reportable 04/25/21 04:27 Large Platelets Not Reportable 04/25/21 04:27 Giant Platelets Not Reportable 04/25/21 04:27 Platelet Satelliting Not Reportable 04/25/21 04:27 Plt Morphology Comment Not Reportable 04/25/21 04:27 RBC Morphology Normal 04/25/21 04:27 Dimorphic RBCs Not Reportable 04/25/21 04:27 Polychromasia Not Reportable 04/25/21 04:27 Hypochromasia Not Reportable 04/25/21 04:27 Poikilocytosis Not Reportable 04/25/21 04:27 Anisocytosis Not Reportable 04/25/21 04:27 Microcytosis Not Reportable 04/25/21 04:27 Macrocytosis Not Reportable 04/25/21 04:27 Spherocytes Not Reportable 04/25/21 04:27 Pappenheimer Bodies Not Reportable 04/25/21 04:27 Sickle Cells Not Reportable 04/25/21 04:27 Target Cells Not Reportable 04/25/21 04:27 Tear Drop Cells Not Reportable 04/25/21 04:27 Ovalocytes Not Reportable 04/25/21 04:27 Helmet Cells Not Reportable 04/25/21 04:27 [place] Bodies Not Reportable 04/25/21 04:27 Warren Rings Not Reportable 04/25/21 04:27 Aditi Cells Not Reportable 04/25/21 04:27 Bite Cells Not Reportable 04/25/21 04:27 Crenated Cell Not Reportable 04/25/21 04:27 Elliptocytes Not Reportable 04/25/21 04:27 Acanthocytes (Spur) Not Reportable 04/25/21 04:27 Rouleaux Not Reportable 04/25/21 04:27 Hemoglobin C Crystals Not Reportable 04/25/21 04:27 Schistocytes Not Reportable 04/25/21 04:27 Malaria parasites Not Reportable 04/25/21 04:27 [place] Bodies Not Reportable 04/25/21 04:27 Hem Pathologist Commnt No 04/25/21 04:27 VBG pH 7.329 (7.320-7.420) 04/24/21 01:58 Sodium 129 mmol/L (137-145) L 04/26/21 06:01 Potassium 4.5 mmol/L (3.6-5.0) 04/26/21 06:01 Chloride 98.6 mmol/L (98-107) 04/26/21 06:01 Carbon Dioxide 13 mmol/L (22-30) L 04/26/21 06:01 Anion Gap 22 mmol/L 04/26/21 06:01 BUN 28 mg/dL (7-17) H 04/26/21 06:01 Creatinine 1.9 mg/dL (0.6-1.2) H 04/26/21 06:01 Estimated GFR 36 ml/min 04/26/21 06:01 BUN/Creatinine Ratio 15 % 04/26/21 06:01 Glucose 405 mg/dL (65-100) H 04/26/21 06:01 POC Glucose 466 mg/dL (70-105) H 04/26/21 08:48 Ketones Quantitative Small (Negative) 04/24/21 01:58 Osmolality 343 Mosm/kg 04/24/21 03:18 Calcium 8.8 mg/dL (8.4-10.2) 04/26/21 06:01 Phosphorus 3.00 mg/dL (2.5-4.5) 04/26/21 06:01 Magnesium 1.70 mg/dL (1.7-2.3) 04/26/21 06:01 Total Bilirubin 0.50 mg/dL (0.1-1.2) 04/25/21 04:27 Direct Bilirubin < 0.2 mg/dL (0-0.2) 04/24/21 01:58 Indirect Bilirubin 0.1 mg/dL 04/24/21 01:58 AST 20 units/L (5-40) 04/25/21 04:27 ALT 7 units/L (7-56) 04/25/21 04:27 Alkaline Phosphatase 112 units/L (35-129) 04/25/21 04:27 Total Protein 6.8 g/dL (6.3-8.2) 04/25/21 04:27 Albumin 3.1 g/dL (3.9-5) L 04/25/21 04:27 Albumin/Globulin Ratio 0.8 % 04/25/21 04:27 HCG, Qual Negative (Negative) 04/24/21 01:58 Holden/IV: Voiding Method Toilet Active Medications - Current Medications Current Medications: Generic Name Dose Route Start Last Admin Trade Name Freq PRN Reason Stop Dose Admin Acetaminophen 650 mg 04/24/21 03:32 04/25/21 20:16 Acetaminophen 325 Mg Tab PO 650 mg Q4H PRN Administration Pain MILD(1-3)/Fever >100.5/TOVAR Albuterol 2.5 mg 04/24/21 03:32 Albuterol 2.5 Mg/3 Ml Nebu IH Q4HRT PRN Shortness Of Breath Famotidine 20 mg 04/24/21 10:00 04/25/21 12:02 Famotidine 20 Mg/2 Ml Inj IV 20 mg DAILY LAKSHMI Administration Hydralazine HCl 10 mg 04/24/21 03:45 04/25/21 20:25 Hydralazine 20 Mg/1 Ml Inj IV 10 mg Q6H PRN Administration Blood Pressure Sodium Chloride 1,000 mls @ 125 mls/hr 04/24/21 03:45 04/24/21 14:44 Nacl 0.9% 1000 Ml IV 125 mls/hr DIRECT LAKSHMI Administration Dextrose/Sodium Chloride 1,000 mls @ 125 mls/hr 04/25/21 14:00 04/25/21 23:42 D5/0.45ns IV 125 mls/hr DIRECT LAKSHMI Administration Insulin Glargine 15 units 04/27/21 08:00 Insulin Glargine 100 Units/Ml SUB-Q QAMDIAB [facility] Insulin Human Lispro 0 unit 04/26/21 07:30 Insulin Lispro 100 Unit/Ml SUB-Q ACHS [facility] Protocol Insulin Human Lispro 5 unit 04/26/21 12:00 Insulin Lispro 100 Unit/Ml SUB-Q Q6HR LAKSHMI Labetalol HCl 10 mg 04/24/21 12:07 04/25/21 20:19 Labetalol 20 Mg/4 Ml Inj IV 10 mg Q4HR PRN Administration SBP > 160 Ondansetron HCl 4 mg 04/24/21 03:32 Ondansetron 4 Mg/2 Ml Inj IV Q8H PRN Nausea And Vomiting Sodium Chloride 10 ml 04/24/21 10:00 04/26/21 05:51 Sodium Chloride 0.9% 10 Ml Flush Syringe IV Not Given BID LAKSHMI Sodium Chloride 10 ml 04/24/21 03:32 Sodium Chloride 0.9% 10 Ml Flush Syringe IV PRN PRN LINE FLUSH Trazodone HCl 50 mg 04/24/21 22:00 04/25/21 23:42 Trazodone 50 Mg Tab PO 50 mg QHS LAKSHMI Administration Nutrition/Malnutrition Assess - Dietary Evaluation Nutrition/Malnutrition Findings: Nutrition Notes Start: 04/24/21 12:11 Freq: Status: Active Protocol: Document 04/24/21 12:11 GB (Rec: 04/24/21 12:28 GB [id number]) Nutrition Notes Need for Assessment generated from: MD Order,Education Initial or Follow up Assessment Current Diagnosis Diabetes,Hypertension Other Pertinent Diagnosis AMS, DKA, Acute renal failure, hyperglycemia Current Diet NPO Labs/Tests 04/24: Na 137, K 3.8, BUN 29, Creatinine 2, glucose 858 04/24: Na 146, K 3.4, BUN 30, Creatinine 2.1, gluocse 334 ( showing improvement), Pertinent Medications NaCl bolus 1000ml Height 5 ft 7 in Weight 68.039 kg Morning Sun Body Weight (kg) 61.36 BMI 23.5 Weight change and time frame admit weight. No reported weight changes at time of assessment Weight Status Appropriate Subjective/Other Information MD consult for nutrition recommendations, diet evaluation H/P: out of insulin for past week, BP 240/165 Percent of energy/protein needs met: 0% - currently NPO Burn Absent Trauma Absent GI Symptoms None Food Allergy No Skin Integrity/Comment no complications reported Current % PO Other Minimum of two criteria No #1 Nutrition Diagnosis Food and nutrition-related knowledge deficit Etiology DKA As Evidenced by Signs and Symptoms MD consult for nutrition education, nutrition related labs elevated see labs 04/24 Is patient on ventilator? No Is Patient Ambulatory and/or Out of Bed Yes REE-([facility]-ambulatory/OOB) [ 1830.426 [id number]] Kcal/Kg value to use for calculation 25 Approximate Energy Requirements Using 1701 kcal/Kg Calculation Used for Recommendations Kcal/kg Additional Notes Protein: 1-1.2 g/kg @ 68k -82g Fluids: 1 ml/kcal or per MD Nutrition Intervention Change Diet Order: Advance to consistent carbohydrate when medically feasible Nutrition Support: n/a Add Supplement/Snack (indicate name/kcal n/a /protein ) Education Handouts Provided Review/provide AND: general healthy nutrition education packet with tips for managing DM at F/U and/or when admitted to floor Goal #1 Diet advanced to Consistent Carbohydrate by f/u Goal #2 PO intake of meals to be 75% or greater during LOS Goal #3 Review/provide AND: general healthy nutrition education packet with tips for managing DM at f/u and/or when admitted to floor Follow-Up By: 04/28/21 Additional Comments F/U: Review/provide AND: general healthy nutrition education packet with tips for managing DM
[2021-04-26] MEDS: FAMOTIDINE 20 MG/2 ML INJ IV SCH (12:00)
[2021-04-26] MEDS ORDERED: INSULIN REGULAR, HUMAN 100 UNITS/1 ML IV ONE (18:00)
[2021-04-26] MEDS: ACETAMINOPHEN 325 MG TAB PO PRN (21:00)
[2021-04-26] MEDS: traZODone 50 MG TAB PO SCH (22:13)
[2021-04-26] MEDS: hydrALAZINE 20 MG/1 ML INJ IV PRN (22:13)
[2021-04-27] MEDS: INSULIN LISPRO 100 UNIT/ML SUB-Q SCH ×9 (00:43→22:08)
[2021-04-27 01:04] LABS: Calcium 8.5 mg/dL (8.4-10.2)
[2021-04-27 07:02] LABS: Calcium 8.8 mg/dL (8.4-10.2)
[2021-04-27] MEDS ORDERED: INSULIN GLARGINE 100 UNITS/ML SUB-Q SCH (08:00)
[2021-04-27] MEDS: ACETAMINOPHEN 325 MG TAB PO PRN ×2 (09:55→17:27)
[2021-04-27] MEDS: INSULIN GLARGINE 100 UNITS/ML SUB-Q SCH (10:01)
[2021-04-27] MEDS: FAMOTIDINE 20 MG/2 ML INJ IV SCH (10:01)
[2021-04-27 11:47] LABS: Calcium 8.4 mg/dL (8.4-10.2)
[2021-04-27] MEDS ORDERED: INSULIN LISPRO 100 UNIT/ML SUB-Q SCH (12:00)
[2021-04-27] MEDS: hydrALAZINE 20 MG/1 ML INJ IV PRN (15:31)
[2021-04-27] MEDS ORDERED: POTASSIUM CHLORIDE ER 20 MEQ TAB PO ONE (16:12)
--- NOTE | 2021-04-27 16:14 | Progress Note ---
Assessment and Plan Assessment and plan: HPI: 35-year female with past medical history of diabetes type 1 and hypertension was brought to the emergency room because of altered mental status, weakness, dehydration and hyperglycemia. Apparently a family member called EMS as the patient appeared to be going in and out of consciousness. The patient is awake and alert for EMS and myself. She admits to being out of her insulin for the past week. She denies any headache, vision change, chest pain, shortness of breath, abdominal pain, vomiting. She also has a history of hypertension and was found to have an extremely elevated blood pressure with EMS and upon presentation here. BP was 240/165. Patient also complained of polydipsia and polyuria. In the emergency room patient is found to have DKA. Patient blood glucose 864. Bicarb 18 anion gap 32 BUN 25 and creatinine 2.0. We are going to put the patient on ICU with insulin drip will consult critical care evaluation Hospital course to date: 04/24: Gap remains open. Blood sugars in 300s. Will monitor on serial BMP. Plan to transition to weight-based Lantus and scheduled mealtime insulin once gap normalizes. Patient also noted to have acute renal failure and is likely high risk for progression of CKD given uncontrolled diabetes and hypertension. Nephrology recommendations are noted. Antihypertensive therapy started. Will monitor for improvement. Anticipate discharge in 48 to 72 hours. Will need diabetic education while she is here. Dietitian consulted 04/25: Gap remains open. Q1 hr BS checks. continue insulin gtt. fluids changed to D5 half-normal saline. 04/26: BG remains uncontrolled. Prematurely d/c off insulin gtt overnight, GAP remains elevated to 18 with blood sugars in 400s! Ordered stat regular insulin 20 unit x1. Started lantus 15 units qhs and started regular insulin 5 units q6hr. Will follow up repeat sugars in afternoon. Continue NPO for now except sips/chips. 04/27: BG remain uncontrolled. GAP still elevated. BMP q4hr. Discharge once GAP normalized .Ordered potassium for low K=3.4. Assessment and plan: (1) Diabetic ketoacidosis Status: Acute Plan to address problem: History of noncompliance, patient has been out of insulin for approximately 1 week now Admit the patient to the ICU. NPO. Normal saline at the rate of 125 cc/h. Insulin drip as per protocol. Transition to weight-based Lantus and scheduled mealtime insulin once gap normalizes We do the serial BMP. Will consult critical care evaluation and diabetic education. Recheck BMP in the morning (2) Acute renal failure Status: Acute Plan to address problem: Possibly from prerenal azotemia versus progression of diabetic nephropathy, poorly controlled blood sugar and blood pressure. avoid nephrotoxic drug. Normal saline at the rate of 125 cc/h. Renally dose medication. Recheck BMP in the morning. Nephrology is consulted (3) Hypertensive emergency Status: Acute Plan to address problem: Labetalol 10 mg IV every 6 hours as needed Start Norvasc 5 mg p.o. daily once patient able to Start hydralazine 100 mg p.o. 3 times daily once able to We continue the home medication. We will monitor the blood pressure closely (4) DVT prophylaxis Status: Acute Plan to address problem: SCD for DVT prophylaxis. Pepcid 20 mg p.o. twice daily for GI prophylaxis. Patient is a full code (4) Advance Care Planning Disease education conducted, care plan discussed, diagnoses discussed, prognosis discussed, patient is full code, patient acknowledges understanding and agree with care plan, +30 minutes. The high probability of a clinically significant, sudden or life threatening deterioration of the [cardio, endocrine, renal] system(s) required my full and direct attention, intervention and personal management. The aggregate critical care time was [60] minutes. This time is in addition to time spent performing reported procedures but includes the following: [x] Data Review and interpretation [x] Patient assessment and monitoring of vital signs [x] Documentation [x] Medication orders and management History Interval history: Patient very angry about not having a diet. Currently not nauseous but anion gap remains elevated and blood sugars as well. Discussed with patient that we will attempt to resume a diabetic diet but she cannot be discharged until blood sugars normalized and anion gap corrected. Hospitalist Physical - Physical exam Narrative exam: Physical Exam: VITAL SIGNS: Reviewed. GENERAL: The patient appears normally developed, Vital signs as documented. HEAD: No signs of head trauma. EYES: Pupils are equal. Extraocular motions intact. EARS: Hearing grossly intact. MOUTH: Oropharynx is normal. NECK: No adenopathy, no JVD. CHEST: Chest with clear breath sounds bilaterally. No wheezes, rales, or rhonchi. CARDIAC: Regular rate and rhythm. S1 and S2, without murmurs, gallops, or rubs. VASCULAR: No Edema. Peripheral pulses normal and equal in all extremities. ABDOMEN: Soft, non tender and non distended. No rebound or guarding, and no masses palpated. Bowel Sounds normal. MUSCULOSKELETAL: Good range of motion of all major joints. Extremities without clubbing, cyanosis or edema. NEUROLOGIC EXAM: Alert and oriented x4. No focal sensory or strength deficits. PSYCHIATRIC: Mood normal. SKIN: detail exam as documented in skin assessment - Constitutional Vitals: Temp Pulse Resp BP Pulse Ox 97.7 F 116 H 20 196/105 96 04/27/21 09:06 04/27/21 09:06 04/27/21 09:06 04/27/21 15:31 04/27/21 09:06 General appearance: Present: mild distress, well-nourished Results - Labs CBC & Chem 7: 04/25/21 04:27 04/27/21 10:55 Labs: Laboratory Last Values WBC 29.8 K/mm3 (4.5-11.0) H 04/25/21 04:27 RBC 4.71 M/mm3 (3.65-5.03) 04/25/21 04:27 Hgb 15.8 gm/dl (10.1-14.3) H 04/25/21 04:27 Hct 46.0 % (30.3-42.9) H 04/25/21 04:27 MCV 98 fl (79-97) H 04/25/21 04:27 MCH 34 pg (28-32) H 04/25/21 04:27 MCHC 34 % (30-34) 04/25/21 04:27 RDW 12.9 % (13.2-15.2) L 04/25/21 04:27 Plt Count 318 K/mm3 (140-440) 04/25/21 04:27 Add Manual Diff Complete 04/25/21 04:27 Total Counted 100 04/25/21 04:27 Seg Neutrophils % House [employer] Supervisor 04/24/21 01:58 Seg Neuts % (Manual) 85.0 % (40.0-70.0) H 04/25/21 04:27 Band Neutrophils % 7.0 % 04/25/21 04:27 Lymphocytes % (Manual) 6.0 % (13.4-35.0) L 04/25/21 04:27 Monocytes % (Manual) 2.0 % (0.0-7.3) 04/25/21 04:27 Nucleated RBC % Not Reportable 04/25/21 04:27 Seg Neutrophils # Man 25.3 K/mm3 (1.8-7.7) H 04/25/21 04:27 Band Neutrophils # 2.1 K/mm3 04/25/21 04:27 Lymphocytes # (Manual) 1.8 K/mm3 (1.2-5.4) 04/25/21 04:27 Abs React Lymphs (Man) 0.0 K/mm3 04/25/21 04:27 Monocytes # (Manual) 0.6 K/mm3 (0.0-0.8) 04/25/21 04:27 Eosinophils # (Manual) 0.0 K/mm3 (0.0-0.4) 04/25/21 04:27 Basophils # (Manual) 0.0 K/mm3 (0.0-0.1) 04/25/21 04:27 Metamyelocytes # 0.0 K/mm3 04/25/21 04:27 Myelocytes # 0.0 K/mm3 04/25/21 04:27 Promyelocytes # 0.0 K/mm3 04/25/21 04:27 Blast Cells # 0.0 K/mm3 04/25/21 04:27 WBC Morphology Not Reportable 04/25/21 04:27 WBC Morphology TNR 04/25/21 04:27 Hypersegmented Neuts Not Reportable 04/25/21 04:27 Hyposegmented Neuts Not Reportable 04/25/21 04:27 Hypogranular Neuts Not Reportable 04/25/21 04:27 Smudge Cells Not Reportable 04/25/21 04:27 Toxic Granulation Not Reportable 04/25/21 04:27 Toxic Vacuolation Not Reportable 04/25/21 04:27 Dohle Bodies Not Reportable 04/25/21 04:27 Pelger-Huet Anomaly Not Reportable 04/25/21 04:27 Lucero Rods Not Reportable 04/25/21 04:27 Platelet Estimate Not Reportable 04/25/21 04:27 Clumped Platelets Not Reportable 04/25/21 04:27 Plt Clumps, EDTA Not Reportable 04/25/21 04:27 Large Platelets Not Reportable 04/25/21 04:27 Giant Platelets Not Reportable 04/25/21 04:27 Platelet Satelliting Not Reportable 04/25/21 04:27 Plt Morphology Comment Not Reportable 04/25/21 04:27 RBC Morphology Normal 04/25/21 04:27 Dimorphic RBCs Not Reportable 04/25/21 04:27 Polychromasia Not Reportable 04/25/21 04:27 Hypochromasia Not Reportable 04/25/21 04:27 Poikilocytosis Not Reportable 04/25/21 04:27 Anisocytosis Not Reportable 04/25/21 04:27 Microcytosis Not Reportable 04/25/21 04:27 Macrocytosis Not Reportable 04/25/21 04:27 Spherocytes Not Reportable 04/25/21 04:27 Pappenheimer Bodies Not Reportable 04/25/21 04:27 Sickle Cells Not Reportable 04/25/21 04:27 Target Cells Not Reportable 04/25/21 04:27 Tear Drop Cells Not Reportable 04/25/21 04:27 Ovalocytes Not Reportable 04/25/21 04:27 Helmet Cells Not Reportable 04/25/21 04:27 [place] Bodies Not Reportable 04/25/21 04:27 [place] Rings Not Reportable 04/25/21 04:27 Aditi Cells Not Reportable 04/25/21 04:27 Bite Cells Not Reportable 04/25/21 04:27 Crenated Cell Not Reportable 04/25/21 04:27 Elliptocytes Not Reportable 04/25/21 04:27 Acanthocytes (Spur) Not Reportable 04/25/21 04:27 Rouleaux Not Reportable 04/25/21 04:27 Hemoglobin C Crystals Not Reportable 04/25/21 04:27 Schistocytes Not Reportable 04/25/21 04:27 Malaria parasites Not Reportable 04/25/21 04:27 [place] Bodies Not Reportable 04/25/21 04:27 Hem Pathologist Commnt No 04/25/21 04:27 VBG pH 7.329 (7.320-7.420) 04/24/21 01:58 Sodium 130 mmol/L (137-145) L 04/27/21 10:55 Potassium 3.5 mmol/L (3.6-5.0) L 04/27/21 10:55 Chloride 99.0 mmol/L (98-107) 04/27/21 10:55 Carbon Dioxide 16 mmol/L (22-30) L 04/27/21 10:55 Anion Gap 19 mmol/L 04/27/21 10:55 BUN 24 mg/dL (7-17) H 04/27/21 10:55 Creatinine 1.6 mg/dL (0.6-1.2) H 04/27/21 10:55 Estimated GFR 44 ml/min 04/27/21 10:55 BUN/Creatinine Ratio 15 % 04/27/21 10:55 Glucose 335 mg/dL (65-100) H 04/27/21 10:55 POC Glucose 261 mg/dL (70-105) H 04/27/21 12:20 Ketones Quantitative Small (Negative) 04/24/21 01:58 Osmolality 343 Mosm/kg 04/24/21 03:18 Lactic Acid 1.90 mmol/L (0.7-2.0) 04/27/21 00:14 Calcium 8.4 mg/dL (8.4-10.2) 04/27/21 10:55 Phosphorus 3.00 mg/dL (2.5-4.5) 04/26/21 06:01 Magnesium 1.70 mg/dL (1.7-2.3) 04/26/21 06:01 Total Bilirubin 0.50 mg/dL (0.1-1.2) 04/25/21 04:27 Direct Bilirubin < 0.2 mg/dL (0-0.2) 04/24/21 01:58 Indirect Bilirubin 0.1 mg/dL 04/24/21 01:58 AST 20 units/L (5-40) 04/25/21 04:27 ALT 7 units/L (7-56) 04/25/21 04:27 Alkaline Phosphatase 112 units/L (35-129) 04/25/21 04:27 Total Protein 6.8 g/dL (6.3-8.2) 04/25/21 04:27 Albumin 3.1 g/dL (3.9-5) L 04/25/21 04:27 Albumin/Globulin Ratio 0.8 % 04/25/21 04:27 HCG, Qual Negative (Negative) 04/24/21 01:58 Holden/IV: Voiding Method Toilet Active Medications - Current Medications Current Medications: Generic Name Dose Route Start Last Admin Trade Name Freq PRN Reason Stop Dose Admin Acetaminophen 650 mg 04/24/21 03:32 04/27/21 09:55 Acetaminophen 325 Mg Tab PO 650 mg Q4H PRN Administration Pain MILD(1-3)/Fever >100.5/TOVAR Albuterol 2.5 mg 04/24/21 03:32 Albuterol 2.5 Mg/3 Ml Nebu IH Q4HRT PRN Shortness Of Breath Famotidine 20 mg 04/24/21 10:00 04/27/21 10:01 Famotidine 20 Mg/2 Ml Inj IV 20 mg DAILY LAKSHMI Administration Hydralazine HCl 10 mg 04/24/21 03:45 04/27/21 15:31 Hydralazine 20 Mg/1 Ml Inj IV 10 mg Q6H PRN Administration Blood Pressure Insulin Glargine 25 units 04/27/21 10:00 04/27/21 10:01 Insulin Glargine 100 Units/Ml SUB-Q 25 units QAMDIAB LAKSHMI Administration Insulin Human Lispro 0 unit 04/26/21 07:30 04/27/21 15:11 Insulin Lispro 100 Unit/Ml SUB-Q 4 unit ACHS LAKSHMI Administration Protocol Insulin Human Lispro 10 unit 04/27/21 09:00 04/27/21 15:11 Insulin Lispro 100 Unit/Ml SUB-Q 10 unit TIDWM LAKSHMI Administration Labetalol HCl 10 mg 04/24/21 12:07 04/25/21 20:19 Labetalol 20 Mg/4 Ml Inj IV 10 mg Q4HR PRN Administration SBP > 160 Ondansetron HCl 4 mg 04/24/21 03:32 Ondansetron 4 Mg/2 Ml Inj IV Q8H PRN Nausea And Vomiting Potassium Chloride 40 meq 04/27/21 16:12 Potassium Chloride Er 20 Meq Tab PO 04/27/21 16:13 ONCE ONE Sodium Chloride 10 ml 04/24/21 10:00 04/27/21 10:03 Sodium Chloride 0.9% 10 Ml Flush Syringe IV 10 ml BID LAKSHMI Administration Sodium Chloride 10 ml 04/24/21 03:32 Sodium Chloride 0.9% 10 Ml Flush Syringe IV PRN PRN LINE FLUSH Trazodone HCl 50 mg 04/24/21 22:00 04/26/21 22:13 Trazodone 50 Mg Tab PO 50 mg QHS LAKSHMI Administration Nutrition/Malnutrition Assess - Dietary Evaluation Nutrition/Malnutrition Findings: Nutrition Notes Start: 04/24/21 12:11 Freq: Status: Active Protocol: Document 04/24/21 12:11 GB (Rec: 04/24/21 12:28 GB [id number]) Nutrition Notes Need for Assessment generated from: MD Order,Education Initial or Follow up Assessment Current Diagnosis Diabetes,Hypertension Other Pertinent Diagnosis AMS, DKA, Acute renal failure, hyperglycemia Current Diet NPO Labs/Tests 04/24: Na 137, K 3.8, BUN 29, Creatinine 2, glucose 858 04/24: Na 146, K 3.4, BUN 30, Creatinine 2.1, gluocse 334 ( showing improvement), Pertinent Medications NaCl bolus 1000ml Height 5 ft 7 in Weight 68.039 kg [place] Body Weight (kg) 61.36 BMI 23.5 Weight change and time frame admit weight. No reported weight changes at time of assessment Weight Status Appropriate Subjective/Other Information MD consult for nutrition recommendations, diet evaluation H/P: out of insulin for past week, BP 240/165 Percent of energy/protein needs met: 0% - currently NPO Burn Absent Trauma Absent GI Symptoms None Food Allergy No Skin Integrity/Comment no complications reported Current % PO Other Minimum of two criteria No #1 Nutrition Diagnosis Food and nutrition-related knowledge deficit Etiology DKA As Evidenced by Signs and Symptoms MD consult for nutrition education, nutrition related labs elevated see labs 04/24 Is patient on ventilator? No Is Patient Ambulatory and/or Out of Bed Yes [facility] [ 1830.426 NUTR.[id number]] Kcal/Kg value to use for calculation 25 Approximate Energy Requirements Using 1701 kcal/Kg Calculation Used for Recommendations Kcal/kg Additional Notes Protein: 1-1.2 g/kg @ 68k -82g Fluids: 1 ml/kcal or per MD Nutrition Intervention Change Diet Order: Advance to consistent carbohydrate when medically feasible Nutrition Support: n/a Add Supplement/Snack (indicate name/kcal n/a /protein ) Education Handouts Provided Review/provide AND: general healthy nutrition education packet with tips for managing DM at F/U and/or when admitted to floor Goal #1 Diet advanced to Consistent Carbohydrate by f/u Goal #2 PO intake of meals to be 75% or greater during LOS Goal #3 Review/provide AND: general healthy nutrition education packet with tips for managing DM at f/u and/or when admitted to floor Follow-Up By: 04/28/21 Additional Comments F/U: Review/provide AND: general healthy nutrition education packet with tips for managing DM
--- NOTE | 2021-04-27 17:29 | Progress Note ---
Assessment and Plan #Acute kidney injury is likely secondary to DKA. Continue DKA management. Continue IV hydration. #Pseudohyponatremia patient's corrected sodium is close to normal #Hypokalemia, replete potassium to goal. #Patient still appears to be volume depleted. Continue IVF #Borderline magnesium consider supplementation with at least 1 g Subjective Date of service: 04/27/21 Principal diagnosis: DKA Interval history: Patient was seen for his renal issues Nursing, interdisciplinary and consult notes were reviewed Vitals, input and output, medications and labs were reviewed Sitting up in bed, feels better this morning. Objective - Exam Narrative Exam: General: No acute distress HEENT: Oral mucosa moist Neck: Supple, no JVD Chest: Clear to auscultation bilaterally Heart: RRR, S1 and S2, no pericardial rub Abdomen: Soft, nontender, no renal bruit Extremity: No peripheral cyanosis, edema Neurological: Alert, awake, no asterixis Dermatology: No skin rash Psych: No agitation Musculoskeletal: No joint effusion - Vital Signs Vital signs: Vital Signs - 12hr 04/27/21 04/27/21 04/27/21 09:06 15:31 16:26 Temperature 97.7 F 98.0 F Pulse Rate 116 H Respiratory 20 20 Rate Blood Pressure 181/106 196/105 177/108 O2 Sat by Pulse 96 Oximetry 04/27/21 16:27 Temperature Pulse Rate 115 H Respiratory Rate Blood Pressure O2 Sat by Pulse 100 Oximetry - Lab 04/25/21 04:27 04/27/21 10:55 Most recent lab results Calcium 8.4 mg/dL (8.4-10.2) 04/27/21 10:55 Phosphorus 3.00 mg/dL (2.5-4.5) 04/26/21 06:01 Magnesium 1.70 mg/dL (1.7-2.3) 04/26/21 06:01 Medications & Allergies - Medications Allergies/Adverse Reactions: Allergies No Known Allergies Allergy (Verified 04/24/21 02:01) Active Medications: Generic Name Dose Route Start Last Admin Trade Name Freq PRN Reason Stop Dose Admin Acetaminophen 650 mg 04/24/21 03:32 04/27/21 17:27 Acetaminophen 325 Mg Tab PO 650 mg Q4H PRN Administration Pain MILD(1-3)/Fever >100.5/TOVAR Albuterol 2.5 mg 04/24/21 03:32 Albuterol 2.5 Mg/3 Ml Nebu IH Q4HRT PRN Shortness Of Breath Famotidine 20 mg 04/24/21 10:00 04/27/21 10:01 Famotidine 20 Mg/2 Ml Inj IV 20 mg DAILY LAKSHMI Administration Hydralazine HCl 10 mg 04/24/21 03:45 04/27/21 15:31 Hydralazine 20 Mg/1 Ml Inj IV 10 mg Q6H PRN Administration Blood Pressure Insulin Glargine 25 units 04/27/21 10:00 04/27/21 10:01 Insulin Glargine 100 Units/Ml SUB-Q 25 units QAMDIAB LAKSHMI Administration Insulin Human Lispro 0 unit 04/26/21 07:30 04/27/21 17:20 Insulin Lispro 100 Unit/Ml SUB-Q 6 unit ACHS LAKSHMI Administration Protocol Insulin Human Lispro 10 unit 04/27/21 09:00 04/27/21 17:21 Insulin Lispro 100 Unit/Ml SUB-Q 10 unit TIDWM LAKSHMI Administration Labetalol HCl 10 mg 04/24/21 12:07 04/25/21 20:19 Labetalol 20 Mg/4 Ml Inj IV 10 mg Q4HR PRN Administration SBP > 160 Ondansetron HCl 4 mg 04/24/21 03:32 Ondansetron 4 Mg/2 Ml Inj IV Q8H PRN Nausea And Vomiting Sodium Chloride 10 ml 04/24/21 10:00 04/27/21 10:03 Sodium Chloride 0.9% 10 Ml Flush Syringe IV 10 ml BID LAKSHMI Administration Sodium Chloride 10 ml 04/24/21 03:32 Sodium Chloride 0.9% 10 Ml Flush Syringe IV PRN PRN LINE FLUSH Trazodone HCl 50 mg 04/24/21 22:00 04/26/21 22:13 Trazodone 50 Mg Tab PO 50 mg QHS LAKSHMI Administration
[2021-04-27 19:09] LABS: Calcium 8.4 mg/dL (8.4-10.2)
[2021-04-27] MEDS: traZODone 50 MG TAB PO SCH (22:10)
[2021-04-28 00:22] LABS: Calcium 8.4 mg/dL (8.4-10.2)
[2021-04-28 02:47] LABS: Calcium 8.3 mg/dL (8.4-10.2)
[2021-04-28] MEDS: ACETAMINOPHEN 325 MG TAB PO PRN ×2 (04:10→11:10)
[2021-04-28 05:26] VITALS: BP 177/96
[2021-04-28] MEDS: INSULIN LISPRO 100 UNIT/ML SUB-Q SCH (07:50)
[2021-04-28 07:53] LABS: Calcium 8.2 mg/dL (8.4-10.2)
--- NOTE | 2021-04-28 08:06 | Discharge Summary ---
Providers - Providers Date of Admission: 04/24/21 03:32 Date of discharge: 04/28/21 Attending physician: KAYLA HAMMOND 04/24/21 03:32 Consult to Dietitian/Nutrition [CONS] Routine Physician Instructions: Reason For Exam: DKA Reason for Consult: Nutrition Recommendations Reason for Consult: Diet education 04/24/21 03:45 Consult to Physician [CONS] Routine Comment: Consulting Provider: RONNY SENA Physician Instructions: Reason For Exam: abdon Primary care physician: CELERY STRIPPER Hospitalization Reason for admission: DKA Condition: Serious Hospital course: 35-year female with past medical history of diabetes type 1 and hypertension was brought to the emergency room because of altered mental status, weakness, dehydration and hyperglycemia. Apparently a family member called EMS as the patient appeared to be going in and out of consciousness. The patient was awake and alert for EMS and Dr. [place]. She admitted to being out of her insulin for the past week. She also has a history of hypertension and was found to have an extremely elevated blood pressure with EMS and upon presentation here. BP was 240/165. Patient also complained of polydipsia and polyuria. The patient was admitted with diagnosis of DKA, acute renal failure, hypertensive emergency.. Patient blood glucose 864. Bicarb 18 anion gap 32 BUN 25 and creatinine 2.0. We are going to put the patient on ICU with insulin drip will consult critical care evaluation Hospital course to date: 04/24: Gap remains open. Blood sugars in 300s. Will monitor on serial BMP. Plan to transition to weight-based Lantus and scheduled mealtime insulin once gap normalizes. Patient also noted to have acute renal failure and is likely high risk for progression of CKD given uncontrolled diabetes and hypertension. Nephrology recommendations are noted. Antihypertensive therapy started. Will monitor for improvement. Anticipate discharge in 48 to 72 hours. Will need diabetic education while she is here. Dietitian consulted 04/25: Gap remains open. Q1 hr BS checks. continue insulin gtt. fluids changed to D5 half-normal saline. 04/26: BG remains uncontrolled. Prematurely d/c off insulin gtt overnight, GAP remains elevated to 18 with blood sugars in 400s! Ordered stat regular insulin 20 unit x1. Started lantus 15 units qhs and started regular insulin 5 units q6hr. Will follow up repeat sugars in afternoon. Continue NPO for now except sips/chips. 04/27: BG remain uncontrolled. GAP still elevated. BMP q4hr. Discharge once GAP normalized .Ordered potassium for low K=3.4. 04/28: Patient is blood glucose is much better controlled and patient will be maintained on current regimen of Lantus 15 units at bedtime and sliding scale insulin. Blood pressure is also back in better control with current regimen. Therefore, patient is felt to receive maximal hospital benefit and will be discharged home. Dedicated discharge time 35 minutes. Disposition: 01 HOME / SELF CARE / HOMELESS Final Discharge Diagnosis (Prints w/discharge instructions): DKA, diabetes mellitus type 2 uncontrolled, accelerated hypertension, acute on chronic kidney disease Core Measure Documentation - Palliative Care Palliative Care/ Comfort Measures: Not Applicable - Core Measures Any of the following diagnoses?: none Exam - Constitutional Vitals: Temp Pulse Resp BP Pulse Ox 98.1 F 104 H 20 177/96 99 04/28/21 04:38 04/28/21 04:38 04/28/21 04:38 04/28/21 04:38 04/28/21 04:38 General appearance: Present: no acute distress, well-nourished - EENT Eyes: Present: PERRL ENT: hearing intact, clear oral mucosa - Neck Neck: Present: supple, normal ROM - Respiratory Respiratory effort: normal Respiratory: bilateral: CTA - Cardiovascular Heart Sounds: Present: S1 & S2. Absent: rub, click - Extremities Extremities: pulses symmetrical, No edema Peripheral Pulses: within normal limits - Abdominal General gastrointestinal: Present: soft, non-tender, non-distended, normal bowel sounds Female genitourinary: Present: normal - Integumentary Integumentary: Present: clear, warm, dry - Musculoskeletal Musculoskeletal: gait normal, strength equal bilaterally - Psychiatric Psychiatric: appropriate mood/affect, intact judgment & insight - Neurologic Neurologic: CNII-XII intact, moves all extremities Plan Activity: advance as tolerated Weight Bearing Status: Weight Bear as Tolerated Diet: diabetic Follow up with: PRIMARY CARE, [Primary Care Provider] - 7 Days Prescriptions: Lispro Insulin [HumaLOG] 10 unit SUB-Q TIDWM 30 Days units labetaloL [Labetalol 200mg TAB] 200 mg PO BID #60 tablet Insulin Glargine [Lantus VIAL] 25 units SUB-Q QAMDIAB 30 Days units
[2021-04-28] MEDS: INSULIN GLARGINE 100 UNITS/ML SUB-Q SCH (08:20)
[2021-04-28] MEDS ORDERED: FAMOTIDINE 20 MG TAB PO SCH (11:00)
--- NOTE | 2021-04-28 15:57 | Progress Note ---
Assessment and Plan #Acute kidney injury is likely secondary to DKA. Improving following DKA management. Keep glucose < 180 mg/dl. #Pseudohyponatremia patient's corrected sodium is close to normal #Hypokalemia, replete potassium to goal. #Borderline magnesium consider supplementation with at least 1 g #Will need outpatient follow up on discharge Subjective Date of service: 04/28/21 Principal diagnosis: DKA Interval history: Patient was seen for his renal issues Nursing, interdisciplinary and consult notes were reviewed Vitals, input and output, medications and labs were reviewed Resting in bed, voided x 4 Objective - Exam Narrative Exam: General: No acute distress HEENT: Oral mucosa moist Neck: Supple, no JVD Chest: Clear to auscultation bilaterally Heart: RRR, S1 and S2, no pericardial rub Abdomen: Soft, nontender, no renal bruit Extremity: No peripheral cyanosis, edema Neurological: Alert, awake, no asterixis Dermatology: No skin rash Psych: No agitation Musculoskeletal: No joint effusion - Vital Signs Vital signs: Vital Signs - 12hr 04/28/21 04/28/21 04/28/21 04:10 04:38 11:10 Temperature 98.1 F Pulse Rate 104 H 104 H Respiratory 18 20 Rate Blood Pressure 177/96 177/96 O2 Sat by Pulse 99 Oximetry - Lab 04/25/21 04:27 04/28/21 06:55 Most recent lab results Calcium 8.2 mg/dL (8.4-10.2) L 04/28/21 06:55 Phosphorus 3.00 mg/dL (2.5-4.5) 04/26/21 06:01 Magnesium 1.70 mg/dL (1.7-2.3) 04/26/21 06:01 Medications & Allergies - Medications Allergies/Adverse Reactions: Allergies No Known Allergies Allergy (Verified 04/24/21 02:01) Home Medications: Home Medications Medication Instructions Recorded Confirmed Last Taken Type Insulin Glargine [Lantus VIAL] 25 units SUB-Q QAMDIAB 30 Days 04/28/21 Unknown Rx units Lispro Insulin [HumaLOG] 10 unit SUB-Q TIDWM 30 Days units 04/28/21 Unknown Rx labetaloL [Labetalol 200mg TAB] 200 mg PO BID #60 tablet 04/28/21 Unknown Rx
== END 2021-04-28 13:30 | disposition home or self-care (01) | DRG 638 ==
LOC: ED 01:38 → CC1 03:32 → 4A 04-26 02:21
PROVIDERS: ADMIT Hospitalist; ATTEND Hospitalist
DX: E10.10 Type 1 diabetes mellitus with ketoacidosis without coma (principal); N17.9 Acute kidney failure, unspecified; E87.1 Hypo-osmolality and hyponatremia; I16.0 Hypertensive urgency; N18.9 Chronic kidney disease, unspecified; I12.9 Hypertensive chronic kidney disease with stage 1 through stage 4 chronic kidney disease, or unspecified chronic kidney disease; Z20.822 Contact with and (suspected) exposure to COVID-19; E87.6 Hypokalemia; E10.65 Type 1 diabetes mellitus with hyperglycemia; E10.22 Type 1 diabetes mellitus with diabetic chronic kidney disease
CPT/HCPCS: 36415; 76770; 80048; 80053; 80076; 82010; 82140; 82805; 82962; 83735; 83930; 84100; 84703; 85007; 85025; 93005; 94640; G0378; J0360; J1815; J3480; J7030; J7040